=== PATIENT | female | born 1930 | race Caucasian/White ===

== ENCOUNTER 2017-06-27 16:30 | Emergency (ER) | payer OTHER ==
[2017-06-27 17:54] LABS: Urine Blood TRACE (NEG); Urine Glucose NEGATIVE (NEG); Urine Protein NEGATIVE (NEG); Urine Specific Gravity 1.015 (1.005-1.030); Urine pH 7.5 (5.0-7.0)
[2017-06-27 18:19] LABS: Protime INR 0.96
[2017-06-27 18:31] LABS: Absolute Lymphocytes (CBC) 1.8 K/uL (0.7-4.9); Absolute Monocytes 0.5 K/uL (0.1-1.3); Absolute Neutrophil 5.7 K/uL (1.8-8.0); Albumin 4.2 g/dL (3.2-5.5); Basophils % 0.9 % (0-1.3); Bilirubin Direct 0.1 mg/dL (0-0.2); Bilirubin Total 0.8 mg/dL (0.3-1.2); Hematocrit 52.2 % (36.0-45.0); Lymphocytes % 21.5 % (15.3-44.8); MCH 30.7 pg (27.0-35.0); MCV 93.6 fL (80-100); MPV 8.3 fL (7.6-11.3); Protein, Total 7.3 g/dL (6.0-8.3); RBC Red Blood Cell Count 5.58 M/uL (3.86-4.86)
--- NOTE | 2017-06-27 18:58 | EDPHYS ---
Physician Documentation [facility] Name: Shameka Serrano Age: 87 yrs Sex: Female : 1930 Arrival Date: 06/27/2017 Time: 16:31 Bed 7 Private MD: ED Physician Tolu Bedoya HPI: 06/27 18:54 This 87 yrs old Female presents to ER via Wheelchair with complaints of gs Weakness, Urinary Problem, Disoriented. 18:54 The patient presents to the emergency department with weakness of the entire body, gs generalized weakness. Onset: The symptoms/episode began/occurred 3 day(s) ago. Associated signs and symptoms: Pertinent positives: dysuria. Severity of symptoms: At their worst the symptoms were moderate in the emergency department the symptoms are unchanged. Current symptoms: Currently, the patient is not experiencing any symptoms. The patient has experienced similar episodes in the past, a few times. Historical: - Allergies: 16:44 No Known Allergies; sg - Home Meds: 16:49 levothyroxine 75 mcg tab 1 tab once daily [Active]; lisinopril 10 mg Oral tab 1 tab sg once daily [Active]; pravastatin 40 mg Oral tab 1 tab nightly [Active]; clonazepam 0.5 mg Oral tab 1 tab 3 times per day [Active]; aspirin 81 mg Oral chew 1 tab once daily [Active]; - PMHx: 16:44 Anxiety; COPD; Depression; Diverticulitis; sg - PSHx: 16:44 ; Tonsillectomy; Appendectomy; Thyroidectomy; Bowel resection; sg - Immunization history:: Adult Immunizations up to date. - Social history:: Smoking status: Patient/guardian denies using tobacco. ROS: 18:54 All other systems are negative. gs Exam: 18:54 Head/Face: Normocephalic, atraumatic. Eyes: Pupils equal round and reactive to light, gs extra-ocular motions intact. Lids and lashes normal. Conjunctiva and sclera are non-icteric and not injected. Cornea within normal limits. Periorbital areas with no swelling, redness, or edema. ENT: Nares patent. No nasal discharge, no septal abnormalities noted. Tympanic membranes are normal and external auditory canals are clear. Oropharynx with no redness, swelling, or masses, exudates, or evidence of obstruction, uvula midline. Mucous membranes moist. Neck: Trachea midline, no thyromegaly or masses palpated, and no cervical lymphadenopathy. Supple, full range of motion without nuchal rigidity, or vertebral point tenderness. No Meningismus. Chest/axilla: Normal chest wall appearance and motion. Nontender with no deformity. No lesions are appreciated. Cardiovascular: Regular rate and rhythm with a normal S1 and S2. No gallops, murmurs, or rubs. Normal PMI, no JVD. No pulse deficits. Respiratory: Lungs have equal breath sounds bilaterally, clear to auscultation and percussion. No rales, rhonchi or wheezes noted. No increased work of breathing, no retractions or nasal flaring. Abdomen/GI: Soft, non-tender, with normal bowel sounds. No distension or tympany. No guarding or rebound. No evidence of tenderness throughout. Back: No spinal tenderness. No costovertebral tenderness. Full range of motion. Skin: Warm, dry with normal turgor. Normal color with no rashes, no lesions, and no evidence of cellulitis. MS/ Extremity: Pulses equal, no cyanosis. Neurovascular intact. Full, normal range of motion. Neuro: Awake and alert, GCS 15, oriented to person, place, time, and situation. Cranial nerves II-XII grossly intact. Motor strength 5/5 in all extremities. Sensory grossly intact. Cerebellar exam normal. Normal gait. 18:54 Constitutional: The patient appears alert, awake. Vital Signs: 16:41 BP 171 / 80; Pulse 70; Resp 18; Pulse Ox 90% on R/A; Pain 0/10; sg 16:55 Temp 98.5; sg 19:00 BP 145 / 72; Pulse 70; Resp 18; Pulse Ox 90% on R/A; Pain 0/10; sg MDM: 17:28 Patient medically screened. gs 18:54 Data reviewed: vital signs, nurses notes. Data interpreted: monitor tech: Pulse gs oximetry:. Response to treatment: the patient's symptoms have markedly improved after treatment, and as a result, I will discharge patient. ED course: ddx uti, sepsis, copd exacerbation. 06/27 17:30 Order name: Basic Metabolic Panel; Complete Time: 18:36 06/27 17:30 Order name: Blood Culture Adult (2) 06/27 17:30 Order name: BNP; Complete Time: 18:36 06/27 17:30 Order name: CBC with Diff; Complete Time: 18:57 06/27 17:30 Order name: Lactate; Complete Time: 18:27 06/27 17:30 Order name: LFT's; Complete Time: 18:36 06/27 17:30 Order name: Lipase; Complete Time: 18:36 06/27 17:30 Order name: Procalcitonin; Complete Time: 18:57 06/27 17:30 Order name: Protime (+inr); Complete Time: 18:57 06/27 17:30 Order name: Troponin (emerg Dept Use Only); Complete Time: 18:36 06/27 17:30 Order name: Chest Single View XRAY; Complete Time: 19:06 06/27 17:39 Order name: Urine Dipstick--Ancillary (enter results); Complete Time: 18:09 06/27 18:52 Order name: Urine Microscopic Only 06/27 17:30 Order name: Accucheck; Complete Time: 17:34 06/27 17:30 Order name: Cardiac monitoring; Complete Time: 17:34 06/27 17:30 Order name: EKG - Nurse/Tech; Complete Time: 17:39 06/27 17:30 Order name: IV Saline Lock - Large Bore; Complete Time: 17:40 06/27 17:30 Order name: Labs collected and sent; Complete Time: 17:40 06/27 17:30 Order name: O2 Per Protocol; Complete Time: 17:33 06/27 17:30 Order name: O2 Sat Monitoring; Complete Time: 17:33 06/27 17:30 Order name: Urine Dipstick-Ancillary (obtain specimen); Complete Time: 17:39 06/27 17:30 Order name: Oxygen; Complete Time: 19:10 gs Administered Medications: No medications were administered Disposition: 06/27/17 18:57 Discharged to Home. Impression: Cystitis. - Condition is Stable. - Discharge Instructions: Urinary Tract Infection. - Prescriptions for Macrobid 100 mg Oral Capsule - take 1 capsule by ORAL route every 12 hours for 3 days; 6 capsule. - Medication Reconciliation Form, Thank You Letter, Antibiotic Education, Prescription Opioid Use form. - Follow up: Private Physician; When: 1 - 2 days; Reason: Re-evaluation by your physician. Signatures: Dispatcher [employer] Adalid Du RN Uma Murdock RN RN ak1 Tolu Bedoya MD MD gs
--- NOTE | 2017-06-27 18:58 | ER ---
Nurse's Notes [facility] Name: Shameka Serrano Age: 87 yrs Sex: Female : 1930 Arrival Date: 06/27/2017 Time: 16:31 Bed 7 Private MD: Diagnosis: Cystitis Presentation: 06/27 16:39 Presenting complaint: Patient states: I just feel very weak all over, its hard for me sg to walk, i get pretty tired, that's unusual for me. I dont really hurt or have any pain anywhere, I just dont feel good. pt family/friend reports episodes of confusion and abnormal behavior for her, she is normally ambulatory without assistance, we think she might have a UTI. Transition of care: patient was not received from another setting of care. No acute neurological deficit is noted. Onset of symptoms was June 27, 2017. Care prior to arrival: None. 16:39 Method Of Arrival: Wheelchair sg 16:39 Acuity: YUDITH 3 sg Triage Assessment: 16:40 General: Appears in no apparent distress. comfortable, well groomed, well developed, sg well nourished, Behavior is calm, cooperative, appropriate for age. Pain: Denies pain. Neuro: Level of Consciousness is awake, alert, obeys commands, Oriented to person, place, time, Billet Recorder are equal bilaterally Moves all extremities. Gait is unsteady, Speech is normal, Facial symmetry appears normal. Neuro: Reports weakness. Cardiovascular: Heart tones S1 S2 present Capillary refill is brisk in bilateral fingers Patient's skin is warm and dry. Chest pain is denied. Respiratory: Airway is patent Respiratory effort is even, unlabored, Respiratory pattern is regular, symmetrical, Breath sounds are clear. GI: Abdomen is round non-distended, Bowel sounds. : No signs and/or symptoms were reported regarding the genitourinary system. Parent/caregiver report the patient having urinary frequency. Derm: Skin is pink, warm \T\ dry. Musculoskeletal: Circulation, motion, and sensation intact. Range of motion: intact in all extremities, Swelling absent. Historical: - Allergies: 16:44 No Known Allergies; sg - Home Meds: 16:49 levothyroxine 75 mcg tab 1 tab once daily [Active]; lisinopril 10 mg Oral tab 1 tab sg once daily [Active]; pravastatin 40 mg Oral tab 1 tab nightly [Active]; clonazepam 0.5 mg Oral tab 1 tab 3 times per day [Active]; aspirin 81 mg Oral chew 1 tab once daily [Active]; - PMHx: 16:44 Anxiety; COPD; Depression; Diverticulitis; sg - PSHx: 16:44 ; Tonsillectomy; Appendectomy; Thyroidectomy; Bowel resection; sg - Immunization history:: Adult Immunizations up to date. - Social history:: Smoking status: Patient/guardian denies using tobacco. Screenin:50 Abuse screen: Denies threats or abuse. Denies injuries from another. Nutritional sg screening: No deficits noted. Tuberculosis screening: No symptoms or risk factors identified. Never had TB. Fall Risk No fall in past 12 months (0 pts). No secondary diagnosis (0 pts). No IV (0 pts). Ambulatory Aid- None/Bed Rest/Nurse Assist (0 pts). Gait- Weak (10 pts.). Total Aiken Fall Scale indicates Low Risk Score (25-44 pts). Fall prevention measures have been instituted. Side Rails Up X 2 Placed close to Nursing Station Frequent Obs/Assesments occuring Family Present and informed to notify staff if they need to leave bedside As available Patient and Family Educated on Fall Prevention Program and strategies. Assessment: 18:50 Reassessment: Patient appears in no apparent distress at this time. Patient and/or sg family updated on plan of care and expected duration. Pain level reassessed. Patient is alert, oriented x 3, equal unlabored respirations, skin warm/dry/pink. Patient states feeling better. Vital Signs: 16:41 BP 171 / 80; Pulse 70; Resp 18; Pulse Ox 90% on R/A; Pain 0/10; sg 16:55 Temp 98.5; sg 19:00 BP 145 / 72; Pulse 70; Resp 18; Pulse Ox 90% on R/A; Pain 0/10; sg ED Course: 16:31 Patient arrived in ED. as 16:41 Triage completed. sg 16:41 Arm band placed on. sg 16:46 Tolu Bedoya MD is Attending Physician. gs 16:50 Patient has correct armband on for positive identification. Bed in low position. Call sg light in reach. Side rails up X2. bus driver/monitor on. Pulse ox on. NIBP on. Warm blanket given. Head of bed elevated. 17:33 Adalid Felipe, RN is Primary Nurse. sg 17:47 Chest Single View XRAY In Process Unspecified. EDMS 18:00 Inserted saline lock: 22 gauge in right antecubital area, using aseptic technique. sg Blood collected. 19:05 No provider procedures requiring assistance completed. IV discontinued, intact, sg bleeding controlled, No redness/swelling at site. Pressure dressing applied. Administered Medications: No medications were administered Outcome: 18:57 Discharge ordered by . gs 19:05 Discharged to home via wheelchair, with family. sg 19:05 Condition: stable 19:05 Discharge instructions given to patient, family, hyperbaric nurse, Instructed on discharge instructions, follow up and referral plans. medication usage, safety practices, Demonstrated understanding of instructions, follow-up care, medications, Prescriptions given X 1. 19:11 Patient left the ED. ak1 Signatures: Dispatcher [employer] EDMS Adalid Felipe, RIA ROLLINS Shruthi Nicole Amber, RN RN ak1 Tolu Bedoya MD MD Corrections: (The following items were deleted from the chart) 18:09 16:40 : No signs and/or symptoms were reported regarding the genitourinary system. sg sg
--- NOTE | 2017-06-27 19:04 | RAD REPORT ---
EXAM DESCRIPTION: RAD - Chest Single View - 06/27/2017 5:46 pm CLINICAL HISTORY: Shortness of breath COMPARISON: May 21 TECHNIQUE: AP portable chest image was obtained 1741 hours . FINDINGS: No peripheral mass or consolidation. Lung markings are prominent but not substantially dif ferent. Pulmonary vasculature is not outside of normal range for portable imaging. Heart size is uppe r normal, similar to comparison. Trachea is midline. No measurable pleural effusion and no pneumothor ax. No gross bony abnormality seen. No acute aortic findings suspected. IMPRESSION: Interstitial markings are prominent but not clearly different from prior study. No focal mass or consolidations seen. Early interstitial edema or interstitial infiltrate can be mask ed by the baseline pattern.
[2017-06-27 19:15] VITALS: BP 171/80; O2SAT 90
[2017-06-27 19:16] VITALS: TEMP 98.5
== END 2017-06-27 19:11 | disposition home or self-care (01) ==
LOC: ER 16:30
DX: N30.90 Cystitis, unspecified without hematuria (principal); F41.9 Anxiety disorder, unspecified; F32.9 Major depressive disorder, single episode, unspecified; J44.9 Chronic obstructive pulmonary disease, unspecified
CPT/HCPCS: 36415; 71045; 80048; 80076; 81003; 83605; 83690; 83880; 84145; 84484; 85025; 85610; 87040; 99284

== ENCOUNTER 2017-07-02 21:32 | Observation (INO) | payer OTHER ==
[2017-07-02 22:14] LABS: Urine Blood NEGATIVE (NEG); Urine Glucose NEGATIVE (NEG); Urine Protein NEGATIVE (NEG); Urine Specific Gravity 1.015 (1.005-1.030); Urine pH 8.5 (5.0-7.0)
[2017-07-02 22:17] LABS: Absolute Lymphocytes (CBC) 1.8 K/uL (0.7-4.9); Absolute Monocytes 0.7 K/uL (0.1-1.3); Basophils % 1.2 % (0-1.3); Eosinophils % 3.6 % (0-4.4); Hematocrit 46.7 % (36.0-45.0); Lymphocytes % 18.4 % (15.3-44.8); MCV 91.2 fL (80-100); MPV 8.3 fL (7.6-11.3); Monocytes % 7.1 % (3.3-12.3); RBC Red Blood Cell Count 5.12 M/uL (3.86-4.86)
[2017-07-02 22:21] LABS: Protime INR 0.97
[2017-07-02 22:28] LABS: Urine Bacteria <20 /HPF (<20); Urine Culture Reflex Order NOT NEEDED; Urine Mucus NS /HPF (NONE SEEN); Urine RBC NONE SEEN /HPF (NONE SEEN)
[2017-07-02] MEDS ORDERED: NA CHLORIDE 0.9% 250 ML ONE (22:29)
[2017-07-02 22:32] LABS: Magnesium 2.2 mg/dL (1.8-2.5)
--- NOTE | 2017-07-02 23:27 | RAD REPORT ---
EXAM DESCRIPTION: RAD - Chest Single View - 07/02/2017 10:12 pm CLINICAL HISTORY: Fall, trauma, chest pain. COMPARISON: 06/27/2017, 05/21/2017 FINDINGS: Portable technique limits examination quality. Interstitial lung markings are mildly prominent. The heart is moderately enlarged. Aortic atheroscler osis. No displaced fractures.Surgical clips seen in the neck. IMPRESSION: Mild CHF/ volume overload pattern.
--- NOTE | 2017-07-03 00:26 | EDPHYS ---
Physician Documentation [facility] Name: Shameka Serrano Age: 87 yrs Sex: Female : 1930 Arrival Date: 07/02/2017 Time: 21:35 Bed 13 Private MD: ED Physician Lupillo Banda HPI: 07/03 00:16 This 87 yrs old Female presents to ER via EMS with complaints of weakness, rn fall, head trauma. 00:16 Daughter reports doing well recently, taking abx for UTI, today sat on floor around 5PM rn to get something from cabinet/shelf, unable to get up, + baseline LLE weakness from assumed previous stroke, but today weaker than normal, also when finally got up, fell backward and hit head, no LOC, no vomiting. . Onset: The symptoms/episode began/occurred today, at 17:00. Severity of symptoms: At their worst the symptoms were moderate in the emergency department the symptoms have improved. It is unknown whether or not the patient has had similar symptoms in the past. The patient has not recently seen a physician. Historical: - Allergies: 07/02 22:14 No Known Allergies; bs1 - Home Meds: 22:14 paroxetine HCl 20 mg oral tab [Active]; levothyroxine 75 mcg tab 1 tab once daily bs1 [Active]; lisinopril 10 mg Oral tab 1 tab once daily [Active]; pravastatin 40 mg Oral tab 1 tab nightly [Active]; clonazepam 0.5 mg Oral tab 1 tab 3 times per day [Active]; docusate sodium 100 mg Oral cap 1 cap once daily [Active]; albuterol sulfate 90 mcg/actuation Inhl HFAA as needed for Chronic Obstructive Pulmonary Disease [Active]; Symbicort 160-4.5 mcg/actuation inhalation HFAA as needed [Active]; Anoro Ellipta 62.5-25 mcg/actuation inhalation dsdv [Active]; - PMHx: 22:14 Anxiety; COPD; Depression; Diverticulitis; bs1 - Immunization history:: Adult Immunizations up to date. - Social history:: Smoking status: Patient uses tobacco products, smokes one-half pack cigarettes per day. - Family history:: not pertinent. - Hospitalizations: : No recent hospitalization is reported. ROS: 07/03 00:16 Constitutional: Negative for fever, chills, and weight loss, Eyes: Negative for injury, rn pain, redness, and discharge, Neck: Negative for injury, pain, and swelling, Cardiovascular: Negative for chest pain, palpitations, and edema, Respiratory: Negative for pleuritic chest pain, Abdomen/GI: Negative for abdominal pain, nausea, vomiting, diarrhea, and constipation, Back: Negative for injury and pain, MS/Extremity: Negative for injury and deformity, Skin: Negative for injury, rash, and discoloration, Neuro: Negative for numbness, tingling, and seizure. Exam: 00:16 Constitutional: This is a well developed, well nourished patient who is awake, alert, rn and in no acute distress. Head/Face: Normocephalic, atraumatic. Eyes: Pupils equal round and reactive to light, extra-ocular motions intact. Lids and lashes normal. Conjunctiva and sclera are non-icteric and not injected. Cornea within normal limits. Periorbital areas with no swelling, redness, or edema. Neck: Trachea midline, no thyromegaly or masses palpated, and no cervical lymphadenopathy. Supple, full range of motion without nuchal rigidity, or vertebral point tenderness. No Meningismus. Cardiovascular: Regular rate and rhythm with a normal S1 and S2. No gallops, murmurs, or rubs. Normal PMI, no JVD. No pulse deficits. Respiratory: + mild tachypnea, no wheezing, no retractions Abdomen/GI: Soft, non-tender, with normal bowel sounds. No distension or tympany. No guarding or rebound. No evidence of tenderness throughout. MS/ Extremity: Pulses equal, no cyanosis. Neuro: Awake and alert, GCS 15, oriented to person, place, and situation. Cranial nerves II-XII grossly intact. Motor strength 4/5 in all 4 extremities, slightly worse in LLE. Sensory grossly intact. Vital Signs: 07/02 22:10 BP 144 / 72 LA Supine (auto/reg); Pulse 78; Resp 22 S; Temp 98.3; Pulse Ox 95% on 3 lpm cc NC; Weight 61.23 kg (R); Height 5 ft. 1 in. (154.94 cm) (R); Pain 0/10; 23:10 BP 139 / 56; Pulse 76; Resp 16; Pulse Ox 96% on 3 lpm NC; Pain 0/10; bs1 07/03 00:20 BP 127 / 85; Pulse 71; Resp 17; Pulse Ox 97% 3 lpm ; Pain 0/10; bs1 02:00 BP 141 / 57; Pulse 64; Resp 21; Pulse Ox 99% ; bp 02:40 BP 134 / 57; Pulse 65; Resp 21; Pulse Ox 98% on 3 lpm NC; Pain 0/10; bs1 07/02 22:10 Body Mass Index 25.51 (61.23 kg, 154.94 cm) cc MDM: 07/02 21:36 Patient medically screened. rn 07/03 00:16 Differential Diagnosis altered mental status, sepsis, UTI, dehydration, pneumonia, rn COPD, head trauma, CVA. Data reviewed: vital signs, nurses notes, lab test result(s), EKG, radiologic studies, CT scan, plain films, and as a result, I will admit patient. Counseling: I had a detailed discussion with the patient and/or guardian regarding: the historical points, exam findings, and any diagnostic results supporting the discharge/admit diagnosis, lab results, radiology results, the need for further work-up and treatment in the hospital. Admission orders: after a detailed discussion of the patient's condition and case, the admit orders are written by me. 07/02 21:47 Order name: Urine Microscopic Only; Complete Time: 23:17 rn 07/02 21:47 Order name: Basic Metabolic Panel; Complete Time: 23:17 rn 07/02 21:47 Order name: BNP; Complete Time: 23:17 rn 07/02 21:47 Order name: CBC with Diff; Complete Time: 23:17 rn 07/02 21:47 Order name: Magnesium; Complete Time: 23:17 rn 07/02 21:47 Order name: Protime (+inr); Complete Time: 23:17 rn 07/02 21:47 Order name: CT Head C Spine rn 07/02 21:47 Order name: Ptt, Activated; Complete Time: 23:17 rn 07/02 21:47 Order name: Troponin (emerg Dept Use Only); Complete Time: 23:17 rn 07/02 21:47 Order name: XRAY Chest (1 view); Complete Time: 23:50 rn 07/02 21:47 Order name: Urine Culture rn 07/02 21:49 Order name: Urine Culture EDMS 07/02 22:09 Order name: Urine Dipstick--Ancillary (enter results); Complete Time: 23:17 em1 07/02 21:47 Order name: EKG; Complete Time: 21:48 rn 07/02 21:47 Order name: Cardiac monitoring; Complete Time: 22:08 rn 07/02 21:47 Order name: EKG - Nurse/Tech; Complete Time: 22:08 rn 07/02 21:47 Order name: IV Saline Lock; Complete Time: 22:08 rn 07/02 21:47 Order name: Labs collected and sent; Complete Time: 22:08 rn 07/02 21:47 Order name: NPO; Complete Time: 22:11 rn 07/02 21:47 Order name: O2 Per Protocol; Complete Time: 22:08 rn 07/02 21:47 Order name: O2 Sat Monitoring; Complete Time: 22:08 rn 07/02 21:47 Order name: Urine Dipstick-Ancillary (obtain specimen); Complete Time: 22:08 rn Administered Medications: 07/02 22:11 Drug: NS 0.9% 250 ml Route: IV; Rate: 1 bolus; Site: right antecubital; bs1 07/03 00:44 Follow up: IV Status: Completed infusion bp Disposition: 07/03/17 00:25 Hospitalization ordered by Giorgio Cloud for Observation. Preliminary diagnosis are Weakness, Dehydration, Dyspnea, unspecified. - Bed requested for Telemetry/MedSurg (observation). - Status is Observation. bs1 - Condition is Stable. - Problem is new. - Symptoms have improved. UTI on Admission? No Signatures: Dispatcher [employer] La Nena Young, RN Lupillo Mcleod MD MD rn Salazar, Brittany, RN RN bs1 Tim Estevez RN bp
--- NOTE | 2017-07-03 00:26 | ER ---
Nurse's Notes [facility] Name: Shameka Serrano Age: 87 yrs Sex: Female : 1930 Arrival Date: 07/02/2017 Time: 21:35 Bed 13 Private MD: Diagnosis: Weakness;Dehydration;Dyspnea, unspecified Presentation: 07/02 21:52 Presenting complaint: EMS states: 'Patient was found on the floor, no LOC, patient sat bs1 down to find something in her cabinet and she fell backwards and hit the back of her head, patient has been feeling weak in the legs for the past couple of days.". Transition of care: patient was not received from another setting of care. Onset of symptoms was July 02, 2017. Care prior to arrival: None. 21:52 Method Of Arrival: EMS: [facility] bs1 21:52 Acuity: YUDITH 2 bs1 21:52 Care prior to arrival: Oxygen administered. via nasal cannula, 2 L, patient uses home bs1 oxygen PRN/bedtime. Historical: - Allergies: 22:14 No Known Allergies; bs1 - Home Meds: 22:14 paroxetine HCl 20 mg oral tab [Active]; levothyroxine 75 mcg tab 1 tab once daily bs1 [Active]; lisinopril 10 mg Oral tab 1 tab once daily [Active]; pravastatin 40 mg Oral tab 1 tab nightly [Active]; clonazepam 0.5 mg Oral tab 1 tab 3 times per day [Active]; docusate sodium 100 mg Oral cap 1 cap once daily [Active]; albuterol sulfate 90 mcg/actuation Inhl HFAA as needed for Chronic Obstructive Pulmonary Disease [Active]; Symbicort 160-4.5 mcg/actuation inhalation HFAA as needed [Active]; Anoro Ellipta 62.5-25 mcg/actuation inhalation dsdv [Active]; - PMHx: 22:14 Anxiety; COPD; Depression; Diverticulitis; bs1 - Immunization history:: Adult Immunizations up to date. - Social history:: Smoking status: Patient uses tobacco products, smokes one-half pack cigarettes per day. - Family history:: not pertinent. - Hospitalizations: : No recent hospitalization is reported. Screenin:15 Abuse screen: Denies threats or abuse. Denies injuries from another. Nutritional bs1 screening: No deficits noted. Tuberculosis screening: No symptoms or risk factors identified. Fall Risk Fall in past 12 months (25 points). No secondary diagnosis (0 pts). IV access (20 points). Ambulatory Aid- Crutches/Cane/Walker (15 pts). Gait- Weak (10 pts.). Mental Status- Oriented to own ability (0 pts). Total Aiken Fall Scale indicates High Risk Score (45 or more points). Fall prevention measures have been instituted. Side Rails Up X 2 Placed Close to Nursing Station As available patient and family educated on Fall Prevention Program and Strategies. Assessment: 22:16 General: Appears in no apparent distress. uncomfortable, Behavior is calm, cooperative. bs1 Pain: Denies pain. Neuro: Level of Consciousness is awake, alert, obeys commands, Oriented to person, place, time, situation, Appropriate for age Remittance Clerk are equal bilaterally Weakness in left leg(s) Gait is unsteady, Speech is normal, Facial symmetry appears normal, Pupils are PERRLA, Intact Denies blurred vision dizziness, difficulty swallowing, numbness headache photophobia. Cardiovascular: Denies chest pain, lightheadedness, palpitations, shortness of breath, syncope, vomiting, Heart tones S1 S2 present Capillary refill < 3 seconds Patient's skin is warm and dry. Respiratory: Airway is patent Trachea midline Respiratory effort is even, unlabored, Respiratory pattern is regular, symmetrical, Breath sounds are diminished bilaterally. Denies shortness of breath at rest, on exertion. GI: Abdomen is round Bowel sounds present X 4 quads. Abd is soft and non tender. GI: Abd is soft and non tender X 4 quads. : Reports incontinence. EENT: No deficits noted. No signs and/or symptoms were reported regarding the EENT system. Derm: Skin redness noted to bilateral knees. Musculoskeletal: Circulation, motion, and sensation intact. Capillary refill < 3 seconds, Range of motion: limited in left leg Daughter states that patient has been having weakness for the past couple years but increased more today around 1700 in left leg. 22:17 Reassessment: Increased oxygen 1L, wa son 2L, now on 3L NC. Oxygen saturation 88%, bs1 increased to 94%. 23:09 Reassessment: Patient appears in no apparent distress at this time. No changes from bs1 previously documented assessment. Patient and/or family updated on plan of care and expected duration. Pain level reassessed. Patient is alert, oriented x 3, equal unlabored respirations, skin warm/dry/pink. 07/03 00:20 Reassessment: Patient appears in no apparent distress at this time. No changes from bs1 previously documented assessment. Patient and/or family updated on plan of care and expected duration. Pain level reassessed. Patient is alert, oriented x 3, equal unlabored respirations, skin warm/dry/pink. 00:43 Reassessment: ADMIT IN PROCESS, ADMIT MD NOLAND PENDING. bp Vital Signs: 07/02 22:10 BP 144 / 72 LA Supine (auto/reg); Pulse 78; Resp 22 S; Temp 98.3; Pulse Ox 95% on 3 lpm cc NC; Weight 61.23 kg (R); Height 5 ft. 1 in. (154.94 cm) (R); Pain 0/10; 23:10 BP 139 / 56; Pulse 76; Resp 16; Pulse Ox 96% on 3 lpm NC; Pain 0/10; bs1 07/03 00:20 BP 127 / 85; Pulse 71; Resp 17; Pulse Ox 97% 3 lpm ; Pain 0/10; bs1 02:00 BP 141 / 57; Pulse 64; Resp 21; Pulse Ox 99% ; bp 02:40 BP 134 / 57; Pulse 65; Resp 21; Pulse Ox 98% on 3 lpm NC; Pain 0/10; bs1 07/02 22:10 Body Mass Index 25.51 (61.23 kg, 154.94 cm) cc ED Course: 07/02 21:32 Notified ED physician of other physician at bedside. bs1 21:35 Patient arrived in ED. em1 21:36 Lupillo Banda MD is Attending Physician. rn 21:50 Inserted saline lock: 20 gauge in right antecubital area, using aseptic technique. cc Blood collected. 21:50 Initial lab(s) drawn, by me, sent to lab. cc 21:51 Belkis Lopez, RN is Primary Nurse. bs1 21:55 Triage completed. bs1 22:08 Urine Microscopic Only Sent. cc 22:08 Basic Metabolic Panel Sent. cc 22:08 BNP Sent. cc 22:08 CBC with Diff Sent. cc 22:08 Magnesium Sent. cc 22:08 Protime (+inr) Sent. cc 22:09 Ptt, Activated Sent. cc 22:09 Troponin (emerg Dept Use Only) Sent. cc 22:10 X-ray completed. Portable x-ray completed in exam room. Patient tolerated procedure kc2 well. 22:11 XRAY Chest (1 view) In Process Unspecified. EDMS 22:16 Patient has correct armband on for positive identification. Placed in gown. Cardiac bs1 monitor on. Pulse ox on. NIBP on. 22:16 Arm band placed on left wrist. bs1 22:[address] via stretcher. vm2 22:36 CT completed. Patient moved back from CT. vm2 22:38 CT Head C Spine In Process Unspecified. EDMS 07/03 00:21 Giorgio Cloud MD is Hospitalizing Provider. rn 00:21 No provider procedures requiring assistance completed. bs1 02:14 Patient admitted, IV remains in place. bp Administered Medications: 07/02 22:11 Drug: NS 0.9% 250 ml Route: IV; Rate: 1 bolus; Site: right antecubital; bs1 07/03 00:44 Follow up: IV Status: Completed infusion bp Outcome: 00:25 Decision to Hospitalize by Provider. rn 02:35 Admitted to Tele accompanied by tech, via stretcher, room 402, with oxygen, with chart, bs1 Report called to RIA Campa 02:35 Condition: stable 02:50 Patient left the ED. bs1 Signatures: Dispatcher [employer] EDUT Lupillo Banda MD MD rn Martinez, Eric 1 Liz Landrum cc Briseyda Harper 2 Sveta Haque 2 Tim Estevez RN RN bp Salazar, Brittany, RN RN bs1
--- NOTE | 2017-07-03 02:05 | P.HP ---
Certification for Inpatient Patient admitted to: Observation With expected LOS: <2 Midnights Practitioner: I am a practitioner with admitting privileges, knowledge of patient current condition, hospital course, and medical plan of care. Services: Services provided to patient in accordance with Admission requirements found in Title 42 Section 412.3 of the Code of Federal Regulations Patient History Date of Service: 07/03/17 Reason for admission: Left lower extremity weakness History of Present Illness: Ms Serrano is an 87 years old woman with history of hypothyroidism, COPD, depression, HTN, parotid gland cancer, who was at home today when suddenly she fell. She states that was not able to stand up from the floor. She managing to call a friend by phone to come and help her. Once her friend arrived home, she crowled to the door to open, and she fell again. Her daughter who is at the bedside, states she has chronic weakness on her left leg, but today is worse. No history of fever or chills. She has been treatede over the weekend with antibiotics due to UTI. Her PCP started about 2 weeks ago on Paxil, and decreased the dose of clonazepam. At arrival Lab work was remarkable for hypokalemia. Trop I was 0.05, no chest pain. Allergies No Known Allergies Allergy (Verified 06/03/14 11:46) Home Medications: Aspirin [Aspirin EC 81 MG] 81 mg PO DAILY 05/22/17 Budesonide/Formoterol Fumarate [Symbicort 160-4.5 Mcg Inhaler] 1 puff IH PRN PRN 05/22/17 Docusate Sodium 100 mg PO BEDTIME 05/22/17 Levothyroxine [Synthroid*] 75 mcg PO DAILY 05/22/17 Lisinopril [Prinivil*] 10 mg PO DAILY 05/22/17 Paroxetine HCl [Paxil] 40 mg PO DAILY 05/22/17 Pravastatin Sodium [Pravachol] 40 mg PO BEDTIME 05/22/17 Cefuroxime Axetil [Cefuroxime] 500 mg PO BID #8 tab 05/23/17 Clonazepam [Klonopin*] 0.5 mg PO DAILY #1 tab 05/23/17 - Past Medical/Surgical History Diabetic: No -: COPD -: ANXIETY -: HYPERLIPIDEMIA -: HYPOTHYROID -: OSTEOPOROSIS -: DIVERTICULITIS -: TOBACCO ABUSE -: CSECTION -: TONSILLECTOMY -: THYROIDECTOMY -: BOWEL RESECTION -: APPENDECTOMY - Family History Family History: Reviewed- Non-Contributory - Social History Alcohol use: Yes CD- Drugs: No Caffeine use: Yes Place of Residence: Home Review of Systems 10-point ROS is otherwise unremarkable Physical Examination - Physical Exam General: Alert, In no apparent distress HEENT: Atraumatic, PERRLA, Mucous membr. moist/pink, EOMI, Sclerae nonicteric Neck: Supple, 2+ carotid pulse no bruit, No LAD, Without JVD or thyroid abnormality Respiratory: Normal air movement, Diminished Cardiovascular: Regular rate/rhythm, Normal S1 S2 Gastrointestinal: Normal bowel sounds, No tenderness Musculoskeletal: No tenderness Integumentary: No rashes Neurological: Normal tone, Normal affect, Abnormal speech (slurred), Abnormal strength (left lower extremity 3/5, rest of the limbs 5/5) Lymphatics: No axilla or inguinal lymphadenopathy - Studies Laboratory Data (last 24 hrs) 07/02/17 21:50: PT 11.5, INR 0.97, APTT 28.6 07/02/17 21:50: WBC 10.0 D, Hgb 15.9 H, Hct 46.7 H, Plt Count 292 07/02/17 21:50: B-Natriuretic Peptide 123 H 07/02/17 21:50: Sodium 146 H, Potassium 3.0 L, BUN 12, Creatinine 0.86, Glucose 106, Magnesium 2.2 Assessment and Plan - Problems (Diagnosis) (1) COPD (chronic obstructive pulmonary disease) Onset Date: 05/22/17 Current Visit: No Status: Acute Qualifiers: COPD type: unspecified COPD Qualified Code(s): J44.9 - Chronic obstructive pulmonary disease, unspecified (2) Generalized weakness Current Visit: No Status: Acute (3) Hypothyroidism Current Visit: No Status: Acute Qualifiers: Hypothyroidism type: unspecified Qualified Code(s): E03.9 - Hypothyroidism , unspecified - Plan The patient will be admitted to the hospital due to weakness. CT head/cervical spine reports no acute abnormalities. She has hypokalemia 3.0. Will replace electrolyte as needed by protocol, order PT evaluation, MRI brain to R/O acute CVA. Will check serial troponin I since initial one is mildly elevated. Will resume her home medication once verified. - Advance Directives Does patient have a Living Will: Yes Does patient have a Durable POA for Healthcare: Yes
[2017-07-03] MEDS ORDERED: ACETAMINOPHEN 500 MG TAB PO PRN (02:25)
[2017-07-03] MEDS ORDERED: ONDANSETRON 4 MG/2 ML VIAL IV PRN (02:25)
[2017-07-03] MEDS ORDERED: NA CHLORIDE 0.9% 250 ML ONE (03:02)
[2017-07-03] MEDS: KCL 20 MEQ/100 mL IVPB 20 MEQ/100 ML BAG IV SCH ×2 (03:27→06:21)
[2017-07-03 05:28] VITALS: BMI 27.6
--- NOTE | 2017-07-03 07:35 | EKG ---
Test Date: 2017-07-02 Test Time: 22:00:[address] Installer: BOB MEASUREMENT RESULTS: Intervals: Rate: 76 ND: 178 QRSD: 92 QT: 428 QTc: 481 [place]: P: -1 ND: 178 QRS: -43 T: 55 INTERPRETIVE STATEMENTS: Sinus rhythm with occasional premature ventricular complexes Left axis deviation Inferior infarct, age undetermined Abnormal ECG Compared to ECG 05/21/2017 21:59:13 Myocardial infarct finding now present Electronically Signed On 07-03-17 07:34:48 CDT by Jun Bob
--- NOTE | 2017-07-03 08:19 | RAD REPORT ---
EXAM DESCRIPTION: CT - CTHCSPWOC - 07/03/2017 3:46 am CLINICAL HISTORY: Trauma, head and neck injury. COMPARISON: 09/28/2014 TECHNIQUE: Axial 5 mm thick images of the head were obtained. Axial 2 mm thick images of the cervical spine were obtained with sagittal and coronal reconstruction images generated and reviewed. All CT scans are performed using dose optimization technique as appropriate and may include automated exposure control or mA/KV adjustment according to patient size. FINDINGS: CT HEAD WITHOUT CONTRAST: No acute hemorrhage, hydrocephalus or extra-axial collection is identified.Mild generalized brain atr ophy is present with mild periventricular and deep white matter chronic microvascular ischemic change s.No areas of brain edema or midline shift. The paranasal sinuses and mastoids are clear.The calvarium is intact. Posterior scalp hematoma noted. CT CERVICAL SPINE WITHOUT CONTRAST: No fracture or subluxation.Mild lower cervical spondylosis.No prevertebral soft tissues swelling is i dentified. IMPRESSION: No acute intracranial or cervical spine findings.
[2017-07-03] MEDS ORDERED: ENOXAPARIN 40 MG/0.4 ML SQ SCH (09:00)
[2017-07-03] MEDS ORDERED: clonazePAM 0.5 MG TAB PO PRN (09:27)
[2017-07-03 10:31] VITALS: O2SAT 94
[2017-07-03 12:15] VITALS: BP 141/83; TEMP 98.1
--- NOTE | 2017-07-03 13:59 | RAD REPORT ---
EXAM DESCRIPTION: MRI - Brain W/Wo Cont - 07/03/2017 1:37 pm CLINICAL HISTORY: Headaches/CVA COMPARISON: July 02, [address] TECHNIQUE: Axial, sagittal, and coronal magnetic images of the brain were obtained. Twenty cc Magnev ist administered intravenously. FINDINGS: Moderate signal within periventricular, deep and subcortical white matter is present. Diffusion-weighted/ADC mapping does not reveal evidence of acute infarction. The ventricles are normal caliber. No abnormal enhancement within the brain is seen. An extra-axial fluid collection is not seen The sinuses and mastoids are clear. IMPRESSION: Moderate signal within periventricular, deep and subcortical white matter probably secon na to small vessel disease. No acute abnormality is displayed
[2017-07-03] MEDS ORDERED: ATORVASTATIN 10 MG TAB PO SCH (21:00)
--- NOTE | 2017-07-04 00:56 | DS ---
Date of Discharge: 07/03/2017 Discharge Diagnoses: 1.Acute chronic obstructive pulmonary disease. 2.Generalized weakness. 3.Hypothyroidism. 4.Generalized anxiety disorder. 5.Hyperlipidemia. 6.Osteoporosis. Hospital Course: The patient is an 87-year-old female, who had a fall. The patient was unable to ge t up however and able to call her friend by phone to come help her. The patient had been feeling wea k and therefore was admitted to the hospital. The patient recently had been treated with antibiotics for her UTI. Upon arrival to the ER, she was found to have some hypokalemia. Troponin was mildly e levated with no chest pain. The patient potassium was replaced. The patient was doing well. She am bulated the hallway twice with minimal assistance. She had no further falls. Imaging including head CT and cervical spine did not show any acute abnormalities. No fractures. MRI of the brain was als o ordered. The patient was then cleared for discharge to go home in a stable condition. Activity: Fall precautions. Diet: Heart healthy. Followup: 1.Follow up with primary care physician in 1 week. 2.Follow up with consultants as recommended. Return to ER for worsening condition. Medications: As per medication reconciliation list. Total time spent discharging the patient was 32 minutes. Physical Examination: General: Awake, alert, oriented, no acute distress. CV: S1, S2. No murmurs. Respiratory: Moving air well bilaterally. No wheezing. Abdomen: Soft, nontender, nondistended. Positive bowel sounds. Extremities: No clubbing, cyanosis, or edema. Neuro: Nonfocal. SA/MODL Voice ID: [id number] Report ID: [id number]
[2017-07-04] MEDS ORDERED: LEVOTHYROXINE SOD 0.075 MG TAB PO SCH (06:30)
[2017-07-04] MEDS ORDERED: PARoxetine HCl 10 MG TAB PO SCH (09:00)
[2017-07-04] MEDS ORDERED: LISINOPRIL 10 MG TAB PO SCH (09:00)
[2017-07-04] MEDS ORDERED: DOCUSATE NA 100 MG CAP PO SCH (09:00)
== END 2017-07-03 14:39 | disposition home or self-care (01) ==
LOC: ER 21:32 → INTOOBSV 07-03 00:54 → OBSVTOIN 07-03 00:54 → ERHOLD 07-03 00:54 → 4TH 07-03 02:23 → OBSVTOIN 07-03 08:16 → INTOOBSV 07-03 08:16
PROVIDERS: ADMIT Internal Medicine; ATTEND Internal Medicine
DX: F41.9 Anxiety disorder, unspecified; Z85.89 Personal history of malignant neoplasm of other organs and systems; F32.9 Major depressive disorder, single episode, unspecified; E87.6 Hypokalemia; J44.9 Chronic obstructive pulmonary disease, unspecified; Z79.82 Long term (current) use of aspirin; R53.1 Weakness; I10 Essential (primary) hypertension; E03.9 Hypothyroidism, unspecified; M81.0 Age-related osteoporosis without current pathological fracture
CPT/HCPCS: 36415; 70450; 70553; 71045; 72125; 80048; 80061; 83735; 83880; 84132; 84443; 84484 ×2; 85025; 85610; 85730; 87086; 87088; 93005; 94760 ×2; 96360; 96361; 97163; 99285; A9579; G0378 ×4; J1650; J2405; 81003; 81015; 96365; 96366

== ENCOUNTER 2017-08-11 05:52 | Emergency (ER) | payer OTHER ==
[2017-08-11 06:27] LABS: Urine Blood NEGATIVE (NEG); Urine Glucose NEGATIVE (NEG); Urine Protein NEGATIVE (NEG); Urine Specific Gravity 1.015 (1.005-1.030); Urine pH 8.5 (5.0-7.0)
[2017-08-11 06:39] LABS: Urine Bacteria <20 /HPF (<20); Urine Culture Reflex Order NOT NEEDED; Urine RBC NONE SEEN /HPF (NONE SEEN)
[2017-08-11 06:42] LABS: Absolute Lymphocytes (CBC) 1.8 K/uL (0.7-4.9); Absolute Monocytes 0.7 K/uL (0.1-1.3); Basophils % 0.7 % (0-1.3); Eosinophils % 1.9 % (0-4.4); Hematocrit 47.1 % (36.0-45.0); Lymphocytes % 18.2 % (15.3-44.8); MCH 31.3 pg (27.0-35.0); MCV 91.7 fL (80-100); MPV 8.1 fL (7.6-11.3); RBC Red Blood Cell Count 5.14 M/uL (3.86-4.86)
[2017-08-11 06:47] LABS: Protime INR 0.94
[2017-08-11 06:56] LABS: Potassium 2.9 mEq/L (3.6-5.0)
[2017-08-11] MEDS ORDERED: NS KCL 20MEQ 1,000 ML IV ONE (07:08)
[2017-08-11] MEDS ORDERED: POTASSIUM 25 MEQ EFFERV TAB ONE (07:08)
[2017-08-11] MEDS ORDERED: ONDANSETRON 4 MG/2 ML VIAL ONE (08:04)
--- NOTE | 2017-08-11 08:34 | ER ---
Nurse's Notes [facility] Name: Shameka Serrano Age: 87 yrs Sex: Female : 1930 Arrival Date: 08/11/2017 Time: 05:54 Bed 6 Private MD: Diagnosis: Hypokalemia;Weakness Presentation: 08/11 06:10 Presenting complaint: Child states: "I think she has a UTI. She has the urinary ao frequency and all those symptoms" Patient also reports weakness and confusion. Daughter report problem started about two days ago. Transition of care: patient was not received from another setting of care. No acute neurological deficit is noted. Pre-hospital glucose is not applicable to this patient. Onset of symptoms is unknown. Initial Sepsis Screen: Does the patient meet any 2 criteria? No. Patient's initial sepsis screen is negative. Does the patient have a suspected source of infection? No. Patient's initial sepsis screen is negative. Care prior to arrival: None. 06:10 Method Of Arrival: Ambulatory ao 06:10 Acuity: YUDITH 3 ao Stroke Activation: Physician: Stroke Attending; Name: ; Notified At: ; Arrived At: Physician: Chief Stroke Resident; Name: ; Notified At: ; Arrived At: Physician: Stroke Resident; Name: ; Notified At: ; Arrived At: Physician: ED Attending; Name: ; Notified At: ; Arrived At: Physician: ED Resident; Name: ; Notified At: ; Arrived At: 06:10 No stroke alert called ao Historical: - Allergies: 06:19 No Known Allergies; ao - Home Meds: 06:19 levothyroxine 75 mcg tab 1 tab once daily [Active]; lisinopril 10 mg Oral tab 1 tab ao once daily [Active]; pravastatin 40 mg Oral tab 1 tab nightly [Active]; clonazepam 0.5 mg Oral tab 1 tab 3 times per day [Active]; docusate sodium 100 mg Oral cap 1 cap once daily [Active]; paroxetine HCl 20 mg Oral tab [Active]; - PMHx: 06:19 Anxiety; COPD; Depression; Diverticulitis; ao - PSHx: 06:19 None; ao - Immunization history:: Adult Immunizations up to date. - Social history:: Smoking status: Patient uses tobacco products, smokes one-half pack cigarettes per day, Patient/guardian denies using alcohol, street drugs. Screenin:23 Abuse screen: Denies threats or abuse. Denies injuries from another. Nutritional ao screening: No deficits noted. Tuberculosis screening: No symptoms or risk factors identified. Fall Risk Fall in past 12 months (25 points). Assessment: 06:21 General: Appears in no apparent distress. comfortable, Behavior is calm, cooperative. ao Pain: Denies pain. Neuro: Level of Consciousness is awake, confused, Oriented to person, Moves all extremities. Speech is normal, Facial symmetry appears normal, Pupils are PERRLA. Cardiovascular: Capillary refill < 3 seconds Patient's skin is warm and dry. Respiratory: Airway is patent Respiratory effort is even, unlabored, Respiratory pattern is regular, symmetrical. GI: Abdomen is non-distended. : No signs and/or symptoms were reported regarding the genitourinary system. EENT: No signs and/or symptoms were reported regarding the EENT system. Derm: Skin is pink, warm \\T\\ dry. Skin temperature is warm. Musculoskeletal: Circulation, motion, and sensation intact. Range of motion: limited in all extremities. 07:19 Reassessment: Patient appears in no apparent distress at this time. Patient and/or sg family updated on plan of care and expected duration. Pain level reassessed. pt daughter at bedside at this time, awaiting IV NS with Potassium to infuse as ordered, pt tolerating PO potassium supplement, no new orders received at this time, will continue to monitor. 07:50 Reassessment: Patient appears in no apparent distress at this time. Patient and/or sg family updated on plan of care and expected duration. Pain level reassessed. Ifeanyi PREDICTIVE MAINTENANCE TECHNICIAN at bedside updating pt and pt daughter on POC, pt and pt daughter stated understanding. Vital Signs: 06:15 BP 191 / 71; Pulse 73; Resp 14; Temp 97.9; Pulse Ox 91% on R/A; Weight 63.5 kg (R); ao Height 5 ft. 0 in. (152.40 cm) (R); Pain 0/10; 07:20 BP 192 / 70; Pulse 67 MON; Resp 16 S; Pulse Ox 98% on 2 lpm NC; sg 07:53 BP 159 / 79; Pulse 65; Resp 17; Pulse Ox 96% on R/A; sg 06:15 Body Mass Index 27.34 (63.50 kg, 152.40 cm) ao 07:53 pt daughter reports that the pt had taken her home medications for BP sg ED Course: 05:54 Patient arrived in ED. ds1 05:59 [facility] kb 05:59 Kari Novak MD is Attending Physician. kb 06:10 Jaime Conley, RN is Primary Nurse. ao 06:14 Triage completed. ao 06:15 Arm band placed on right wrist. Patient placed in an exam room, on a stretcher, on ao oxygen, on pulse oximetry. 06:23 Patient has correct armband on for positive identification. Pulse ox on. NIBP on. ao 06:30 Inserted saline lock: 20 gauge in left antecubital area, using aseptic technique. Blood eb collected. 06:53 CT Head Brain wo Cont In Process Unspecified. EDMS 07:00 Report given to RIA Cordoba. ao 07:06 Primary Nurse role handed off by Jaime Conley, RN sg 07:06 Adalid Felipe, RN is Primary Nurse. sg 07:41 Assisted to bathroom. with assistance from cath laboratory technician Hakeem. sg 07:44 back to bed, no problems encountered. sg 07:52 Awaiting: IV fluids to infuse prior to dc to home. sg 08:22 Assisted with bedpan. sv 08:44 No provider procedures requiring assistance completed. IV discontinued, intact, sg bleeding controlled, No redness/swelling at site. Pressure dressing applied. Administered Medications: 07:18 Drug: Potassium Effervescent Tablet 50 mEq Route: PO; sg 08:25 Follow up: Response: No adverse reaction sg 07:18 Drug: NS 0.9% with KCl 20 mEq/L 1000 ml Route: IV; Rate: calculated rate; Site: left sg forearm; 08:47 Follow up: Response: No adverse reaction; IV Status: Completed infusion sg 08:06 Drug: Zofran 4 mg Route: IVP; Site: left antecubital; sg 08:24 Follow up: Response: No adverse reaction; Nausea is decreased sg Outcome: 08:33 Discharge ordered by . kb 08:44 Discharged to home ambulatory, with family. sg 08:44 Condition: good 08:44 Discharge instructions given to patient, family, cmo, Instructed on discharge instructions, follow up and referral plans. safety practices, Demonstrated understanding of instructions, follow-up care. 08:45 Patient left the ED. ag Signatures: Dispatcher [employer] Neeta Sosa, ANABEL STONEP-Maricel Martinez RN RN sv Gay, Steven, RN RN sg Sanford, Demi ds1 Katheryn Cooper Alex, RN RN ao Botello, Elizabeth eb
--- NOTE | 2017-08-11 08:34 | EDPHYS ---
Physician Documentation [facility] Name: Shameka Serrano Age: 87 yrs Sex: Female : 1930 Arrival Date: 08/11/2017 Time: 05:54 Bed 6 Private MD: ED Physician Kari Novak HPI: 08/11 06:06 This 87 yrs old Female presents to ER via Unassigned with complaints of kb Weakness, Urinary Frequency. 06:06 The patient presents with urinary symptoms, frequency. Onset: The symptoms/episode kb began/occurred 2 day(s) ago. Modifying factors: The symptoms are alleviated by nothing, the symptoms are aggravated by nothing. Associated signs and symptoms: Pertinent positives: urinary frequency, unsteady. Severity of symptoms: At their worst the symptoms were mild, moderate, in the emergency department the symptoms are unchanged. The patient has experienced similar episodes in the past, a few times. The patient has not recently seen a physician. Daughter states pt has been unsteady, altered and having urinary frequency since Saturday. Urinary frequency worse last night. Historical: - Allergies: 06:19 No Known Allergies; ao - Home Meds: 06:19 levothyroxine 75 mcg tab 1 tab once daily [Active]; lisinopril 10 mg Oral tab 1 tab ao once daily [Active]; pravastatin 40 mg Oral tab 1 tab nightly [Active]; clonazepam 0.5 mg Oral tab 1 tab 3 times per day [Active]; docusate sodium 100 mg Oral cap 1 cap once daily [Active]; paroxetine HCl 20 mg Oral tab [Active]; - PMHx: 06:19 Anxiety; COPD; Depression; Diverticulitis; ao - PSHx: 06:19 None; ao - Immunization history:: Adult Immunizations up to date. - Social history:: Smoking status: Patient uses tobacco products, smokes one-half pack cigarettes per day, Patient/guardian denies using alcohol, street drugs. ROS: 06:09 Constitutional: Negative for fever, chills, and weight loss, ENT: Negative for injury, kb pain, and discharge, Neck: Negative for injury, pain, and swelling, Cardiovascular: Negative for chest pain, palpitations, and edema, Respiratory: Negative for shortness of breath, cough, wheezing, and pleuritic chest pain, Abdomen/GI: Negative for abdominal pain, nausea, vomiting, diarrhea, and constipation, Back: Negative for injury and pain, MS/Extremity: Negative for injury and deformity, Skin: Negative for injury, rash, and discoloration. 06: : Positive for urinary symptoms, urinary frequency. 06: Neuro: Positive for gait disturbance, weakness. Exam: :09 Constitutional: This is a well developed, well nourished patient who is awake, alert, kb and in no acute distress. Head/Face: Normocephalic, atraumatic. ENT: Nares patent. No nasal discharge, no septal abnormalities noted. Tympanic membranes are normal and external auditory canals are clear. Oropharynx with no redness, swelling, or masses, exudates, or evidence of obstruction, uvula midline. Mucous membranes moist. Neck: Trachea midline, no thyromegaly or masses palpated, and no cervical lymphadenopathy. Supple, full range of motion without nuchal rigidity, or vertebral point tenderness. No Meningismus. Chest/axilla: Normal chest wall appearance and motion. Nontender with no deformity. No lesions are appreciated. Cardiovascular: Regular rate and rhythm with a normal S1 and S2. No gallops, murmurs, or rubs. Normal PMI, no JVD. No pulse deficits. Respiratory: Lungs have equal breath sounds bilaterally, clear to auscultation and percussion. No rales, rhonchi or wheezes noted. No increased work of breathing, no retractions or nasal flaring. Abdomen/GI: Soft, non-tender, with normal bowel sounds. No distension or tympany. No guarding or rebound. No evidence of tenderness throughout. Back: No spinal tenderness. No costovertebral tenderness. Full range of motion. Skin: Warm, dry with normal turgor. Normal color with no rashes, no lesions, and no evidence of cellulitis. MS/ Extremity: Pulses equal, no cyanosis. Neurovascular intact. Full, normal range of motion. Neuro: Awake and alert, GCS 15, oriented to person, place, time, and situation. Cranial nerves II-XII grossly intact. Motor strength 5/5 in all extremities. Sensory grossly intact. Cerebellar exam normal. Normal gait. Vital Signs: :15 BP 191 / 71; Pulse 73; Resp 14; Temp 97.9; Pulse Ox 91% on R/A; Weight 63.5 kg (R); ao Height 5 ft. 0 in. (152.40 cm) (R); Pain 0/10; 07:20 BP 192 / 70; Pulse 67 MON; Resp 16 S; Pulse Ox 98% on 2 lpm NC; sg 07:53 BP 159 / 79; Pulse 65; Resp 17; Pulse Ox 96% on R/A; sg 06:15 Body Mass Index 27.34 (63.50 kg, 152.40 cm) ao 07:53 pt daughter reports that the pt had taken her home medications for BP sg MDM: 05:59 Patient medically screened. kb 06:06 Data reviewed: vital signs, nurses notes. kb 06:09 ED course: Pt ambulated from lobby to restroom to room without difficulty. Steady gait kb observed. 06:27 Data interpreted: Pulse oximetry: on room air is 91 %. Interpretation: Borderline, pt kb has COPD. 08:33 Counseling: I had a detailed discussion with the patient and/or guardian regarding: the kb historical points, exam findings, and any diagnostic results supporting the discharge/admit diagnosis, lab results, radiology results, the need for outpatient follow up, a family practitioner, to return to the emergency department if symptoms worsen or persist or if there are any questions or concerns that arise at home. 08/11 05:59 Order name: Urine Microscopic Only; Complete Time: 06:45 kb 08/11 06:05 Order name: CBC with Diff; Complete Time: 06:45 kb 08/11 06:05 Order name: Basic Metabolic Panel; Complete Time: 07:03 kb 08/11 06:08 Order name: Urine Dipstick--Ancillary (enter results); Complete Time: 06:27 mw2 08/11 06:09 Order name: BNP; Complete Time: 07:03 kb 08/11 06:09 Order name: Magnesium; Complete Time: 07:03 kb 08/11 06:09 Order name: PT-INR; Complete Time: 07:03 kb 08/11 06:09 Order name: Ptt, Activated; Complete Time: 07:03 kb 08/11 06:09 Order name: Troponin (emerg Dept Use Only); Complete Time: 07:03 kb 08/11 06:15 Order name: CT Head Brain wo Cont kb 08/11 05:59 Order name: Urine Dipstick-Ancillary (obtain specimen); Complete Time: 06:07 kb 08/11 06:05 Order name: IV Start; Complete Time: 06:30 kb 08/11 06:09 Order name: EKG; Complete Time: 06:09 kb 08/11 06:09 Order name: Cardiac monitoring; Complete Time: 06:30 kb 08/11 06:09 Order name: EKG - Nurse/Tech; Complete Time: 06:39 kb 08/11 06:09 Order name: Labs collected and sent; Complete Time: 06:31 kb 08/11 06:09 Order name: O2 Per Protocol; Complete Time: 06:30 kb 08/11 06:09 Order name: O2 Sat Monitoring; Complete Time: 06:30 kb Administered Medications: 07:18 Drug: Potassium Effervescent Tablet 50 mEq Route: PO; sg 08:25 Follow up: Response: No adverse reaction sg 07:18 Drug: NS 0.9% with KCl 20 mEq/L 1000 ml Route: IV; Rate: calculated rate; Site: left sg forearm; 08:47 Follow up: Response: No adverse reaction; IV Status: Completed infusion sg 08:06 Drug: Zofran 4 mg Route: IVP; Site: left antecubital; sg 08:24 Follow up: Response: No adverse reaction; Nausea is decreased sg Disposition: 08/11/17 08:33 Discharged to Home. Impression: Hypokalemia, Weakness. - Condition is Stable. - Discharge Instructions: Potassium Content of Foods, Weakness, [id number], Hypokalemia. - Medication Reconciliation Form, Thank You Letter, Antibiotic Education, Prescription Opioid Use form. - Follow up: Emergency Department; When: As needed; Reason: Worsening of condition. Follow up: Private Physician; When: 2 - 3 days; Reason: Recheck today's complaints, Continuance of care, Re-evaluation by your physician. Addendum: 08/25/2017 10:01 Co-signature as Attending Physician, Kari Novak MD. m a2 Signatures: Dispatcher [employer] Neeta Sosa, DAY-C DAY-Adalid Major RN RN Katheryn Franklin Alex RN Kari Randall MD MD ma2 Corrections: (The following items were deleted from the chart) 08/11 06:25 06:09 Chest Single View+RAD.RAD.BRZ ordered. EDMS EDMS 06:28 06:27 Data interpreted: Pulse oximetry: on room air is 91 %. Interpretation: kb borderline. kb 08:45 08:33 08/11/2017 08:33 Discharged to Home. Impression: Hypokalemia; Weakness. Condition ag is Stable. Forms are Medication Reconciliation Form, Thank You Letter, Antibiotic Education, Prescription Opioid Use. Follow up: Emergency Department; When: As needed; Reason: Worsening of condition. Follow up: Private Physician; When: 2 - 3 days; Reason: Recheck today's complaints, Continuance of care, Re-evaluation by your physician. kb
[2017-08-11 08:51] VITALS: TEMP 97.9
[2017-08-11 08:53] VITALS: BP 159/79; O2SAT 96
--- NOTE | 2017-08-11 11:07 | RAD REPORT ---
EXAM DESCRIPTION: CT - Head Brain Wo Cont - 08/11/2017 6:53 am CLINICAL HISTORY: Altered consciousness COMPARISON: 05/21/2017 TECHNIQUE: All CT scans are performed using dose optimization technique as appropriate and may inclu de automated exposure control or mA/KV adjustment according to patient size. FINDINGS: No intracranial hemorrhage, hydrocephalus or extra-axial fluid collection.Moderate general ized brain atrophy is present with moderate periventricular and deep white matter chronic microvascul ar ischemic changes.No areas of brain edema or evidence of midline shift. The paranasal sinuses and mastoids are clear. The calvarium is intact. Partially imaged left parotid gland lesion again seen, nonspecific. IMPRESSION: No acute intracranial abnormality.
--- NOTE | 2017-08-12 14:47 | EKG ---
Test Date: 2017-08-11 Test Time: 06:49:[address]: SILVERIO MEASUREMENT RESULTS: Intervals: Rate: 67 [place]: 134 QRSD: 98 QT: 444 QTc: 469 [place]: P: [place]: 134 QRS: -47 T: 66 INTERPRETIVE STATEMENTS: Sinus rhythm with occasional premature ventricular complexes Left anterior fascicular block Abnormal ECG Compared to ECG 08/11/2017 06:49:23 Ventricular premature complex(es) now present Electronically Signed On 08-12-17 14:46:55 CDT by Edward Lugo
--- NOTE | 2017-08-12 14:47 | EKG ---
Test Date: 2017-08-11 Test Time: 06:49:23 Coping Machine Operator: SILVERIO MEASUREMENT RESULTS: Intervals: Rate: 67 ME: 136 QRSD: 96 QT: 442 QTc: 467 [place]: P: 269 ME: 136 QRS: -47 T: 62 INTERPRETIVE STATEMENTS: Unusual P axis and short ME, probable junctional rhythm Left anterior fascicular block Abnormal ECG Compared to ECG 07/02/2017 22:00:49 Left anterior fascicular block now present Sinus rhythm no longer present Ventricular premature complex(es) no longer present Left-axis deviation no longer present Myocardial infarct finding no longer present Electronically Signed On 08-12-17 14:47:26 CDT by Edward Lugo
== END 2017-08-11 08:45 | disposition home or self-care (01) ==
LOC: ER 05:52
DX: E87.6 Hypokalemia (principal); F17.210 Nicotine dependence, cigarettes, uncomplicated; F41.9 Anxiety disorder, unspecified; F32.9 Major depressive disorder, single episode, unspecified; J44.9 Chronic obstructive pulmonary disease, unspecified
CPT/HCPCS: 36415; 70450; 80048; 83735; 83880; 84484; 85025; 85610; 85730; 93005 ×2; 96361; 96374; 99284; J2405; 81003; 81015

== ENCOUNTER 2017-08-31 08:19 | Emergency (ER) | payer OTHER ==
[2017-08-31 09:19] LABS: Absolute Lymphocytes (CBC) 1.2 K/uL (0.7-4.9); Absolute Monocytes 0.4 K/uL (0.1-1.3); Absolute Neutrophil 7.9 K/uL (1.8-8.0); Basophils % 0.7 % (0-1.3); Eosinophils % 0.8 % (0-4.4); Hematocrit 45.5 % (36.0-45.0); MCH 30.8 pg (27.0-35.0); MCV 92.5 fL (80-100); Monocytes % 4.3 % (3.3-12.3); RBC Red Blood Cell Count 4.92 M/uL (3.86-4.86)
[2017-08-31 09:23] LABS: Protime INR 0.94
[2017-08-31 09:30] LABS: Potassium 3.1 mEq/L (3.6-5.0)
[2017-08-31 09:36] LABS: Albumin 3.6 g/dL (3.2-5.5); Bilirubin Direct 0.1 mg/dL (0-0.2); Bilirubin Total 0.7 mg/dL (0.3-1.2); Magnesium 2.1 mg/dL (1.8-2.5); Protein, Total 6.5 g/dL (6.0-8.3)
[2017-08-31 09:40] LABS: CKMB Creatine Kinase MB 1.8 ng/ml (0.3-4.0)
--- NOTE | 2017-08-31 09:43 | RAD REPORT ---
EXAM DESCRIPTION: CT - Head Brain Wo Cont - 08/31/2017 9:13 am CLINICAL HISTORY: Headache, dizziness COMPARISON: August 11 TECHNIQUE: Axial 5 mm thick images of the head were obtained without IV contrast. All CT scans are performed using dose optimization technique as appropriate and may include automated exposure control or mA/KV adjustment according to patient size. FINDINGS: No intracranial hemorrhage, mass, edema or shift of mid-line structures. No acute cortical based infarction. Mild to moderate atrophy changes are present. Ventricular size is in proportion to volume loss. Physiologic and arterial calcifications are present. No abnormal extra-axial fluid shivam ections. Intracranial findings are similar to comparison. Mastoid air cells and visualized portions of the paranasal sinuses are clear. No acute bony findings. A 3.8 centimeter soft tissue mass is present in the region of the left parotid gland. This is only pa rtially imaged on this study. It is unknown if this is a known finding or has been further evaluated. No prior directed imaging of this mass is evident. IMPRESSION: A 3.8 centimeter left parotid region soft tissue mass is present not fully addressed on this examination. Neoplastic mass is certainly possible. It is unknown if this mass is known or has b een previously worked up. No directed imaging of this mass at this facility. Mild to moderate atrophy and moderate chronic ischemic changes are present. Intracranial findings are similar to August 11.
[2017-08-31] MEDS ORDERED: NA CHLORIDE 0.9% 500 ML ONE (09:50)
[2017-08-31] MEDS ORDERED: KCL 20 MEQ/100 mL IVPB 20 MEQ/100 ML BAG IV ONE (09:50)
[2017-08-31] MEDS ORDERED: ONDANSETRON 4 MG/2 ML VIAL ONE (09:54)
[2017-08-31] MEDS ORDERED: MECLIZINE HCL 12.5 MG TAB ONE (09:54)
[2017-08-31 09:57] LABS: Urine Blood NEGATIVE (NEG); Urine Glucose NEGATIVE (NEG); Urine Protein NEGATIVE (NEG); Urine pH 7.5 (5.0-7.0)
--- NOTE | 2017-08-31 10:38 | RAD REPORT ---
EXAM DESCRIPTION: RAD - Chest Single View - 08/31/2017 9:25 am CLINICAL HISTORY: Weakness, dizziness, syncope COMPARISON: July 02 TECHNIQUE: AP portable chest image was obtained 0913 hours . FINDINGS: Chronic interstitial lung disease is present, similar to comparison. No peripheral mass or consolidation. Heart size and vasculature within normal limits. Trachea is midline. No measurable pl eural effusion and no pneumothorax. No gross bony abnormality seen. No acute aortic findings suspecte d. IMPRESSION: No acute cardiopulmonary process. Chronic interstitial lung disease pattern is similar to comparison.
--- NOTE | 2017-08-31 12:14 | ER ---
Nurse's Notes [facility] Name: Shameka Serrano Age: 87 yrs Sex: Female : 1930 Arrival Date: 08/31/2017 Time: 08:20 Bed 14 Private MD: Patrick Fragoso E Diagnosis: Dizziness and giddiness;Volume depletion;Hypokalemia Presentation: 08/31 08:21 Presenting complaint: Patient states: Woke up about 2:00 this morning to go to the [facility] bathroom and had a headache and felt dizzy. Transition of care: patient was not received from another setting of care. Onset of symptoms was August 31, 2017 at 02:00. Risk Assessment: Do you want to hurt yourself or someone else? Patient reports no desire to harm self or others. Initial Sepsis Screen: Does the patient meet any 2 criteria? No. Patient's initial sepsis screen is negative. Does the patient have a suspected source of infection? No. Patient's initial sepsis screen is negative. 08:21 Method Of Arrival: Wheelchair [facility] 08:21 Acuity: YUDITH 3 [facility] 08:21 Care prior to arrival: None. [facility] Triage Assessment: 08:21 Headache History: Denies prior headaches. General: Appears in no apparent distress. rb1 comfortable, Behavior is calm, cooperative, appropriate for age, Denies fever. Pain: Complains of pain in left side of head and under left breast Pain currently is 7 out of 10 on a pain scale. Pain began 0200 this morning. Pain: Also complains of nausea. Neuro: Level of Consciousness is awake, alert, obeys commands, Oriented to person, place, time, situation. Neuro: Reports dizziness. Cardiovascular: Capillary refill < 3 seconds is brisk in bilateral fingers. Respiratory: Airway is patent Respiratory effort is even, unlabored, Respiratory pattern is regular, symmetrical. GI: Reports nausea. : No signs and/or symptoms were reported regarding the genitourinary system. Derm: Skin is pink, warm \T\ dry. Musculoskeletal: Range of motion: intact in all extremities. Historical: - Allergies: 08: No Known Allergies; rb1 - Home Meds: 08: levothyroxine 75 mcg tab 1 tab once daily [Active]; pravastatin 40 mg Oral tab 1 tab rb1 nightly [Active]; lisinopril 10 mg Oral tab 1 tab once daily [Active]; paroxetine HCl 20 mg Oral tab [Active]; sucralfate 1 gram Oral tab 1 tab 3 times per day [Active]; - PMHx: 08:21 Anxiety; COPD; Depression; Diverticulitis; rb1 - PSHx: 08:21 ; Appendectomy; Thyroidectomy; Bowel resection; rb1 - Immunization history:: Adult Immunizations up to date. - Social history:: Smoking status: Patient uses tobacco products, smokes one-half pack cigarettes per day. - Ebola Screening: : Patient negative for fever greater than or equal to 101.5 degrees Fahrenheit, and additional compatible Ebola Virus Disease symptoms. Screenin:21 Abuse screen: Denies threats or abuse. Nutritional screening: No deficits noted. rb1 Tuberculosis screening: No symptoms or risk factors identified. Fall Risk None identified. Assessment: 08:21 General: See triage assessment. rb1 09:07 Reassessment: Pt. went to CT. rb1 09:30 Reassessment: Patient appears in no apparent distress at this time. No changes from rb1 previously documented assessment. 10:05 Reassessment: Patient appears in no apparent distress at this time. Patient and/or rb1 family updated on plan of care and expected duration. Pain level reassessed. Patient is alert, oriented x 3, equal unlabored respirations, skin warm/dry/pink. 11:31 Reassessment: Pt. ambulated to the bathroom and around the nurse's station without rb1 difficulty. Denies dizziness. Provider notified. Vital Signs: 08:21 BP 156 / 78; Pulse 71; Resp 20; Temp 98.1(O); Pulse Ox 93% on 2.5 lpm NC; Weight 58.97 rb1 kg; Height 5 ft. 1 in. (154.94 cm); Pain 7/10; 09:07 rb1 09:30 BP 180 / 81; Pulse 62; Resp 19; Pulse Ox 93% on 2.5 lpm NC; rb1 10:30 BP 168 / 67; Pulse 63; Resp 20; Pulse Ox 96% on 2.5 lpm NC; rb1 11:34 BP 184 / 75; Pulse 61; Resp 19; Pulse Ox 96% on 2.5 lpm NC; rb1 12:31 BP 163 / 66; Pulse 62; Resp 19; Pulse Ox 95% on 2.5 lpm NC; rb1 08:21 Body Mass Index 24.56 (58.97 kg, 154.94 cm) rb1 09:[address] rb1 ED Course: 08:20 Patient arrived in ED. sb2 08:20 Patrick Fragoso MD is Private Physician. sb2 08:21 Arm band placed on right wrist. rb1 08:21 Patient has correct armband on for positive identification. Placed in gown. Bed in low rb1 position. Call light in reach. Side rails up X 1. court monitor on. Pulse ox on. NIBP on. Warm blanket given. 08:33 Kristin Caba FNP-C is PHCP. snw 08:33 Tolu Bedoya MD is Attending Physician. snw 08:34 Claudia Crenshaw, RIA is Primary Nurse. rb1 08:35 Triage completed. rb1 09:05 Inserted saline lock: 22 gauge in right forearm, using aseptic technique. Blood rb1 collected. 09:13 CT Head Brain wo Cont In Process Unspecified. EDMS 09:13 CT completed. Patient tolerated procedure well. Patient moved to radiology. bq 09:24 X-ray completed. Portable x-ray completed in exam room. Patient tolerated procedure kc2 well. 09:24 XRAY Chest (1 view) In Process Unspecified. EDMS 09:49 Urine collected: clean catch specimen, clear, EKG done, by ED staff, reviewed by Kristin mh5 Gertrudis LITTLE. 12:13 Patrick Fragoso MD is Referral Physician. snw 12:35 No provider procedures requiring assistance completed. IV discontinued, intact, rb1 bleeding controlled, No redness/swelling at site. Pressure dressing applied. Administered Medications: 09:50 Drug: Potassium Chloride 20 mEq Route: IV; Rate: calculated rate; Site: right forearm; rb1 11:43 Follow up: Response: No adverse reaction; IV Status: Completed infusion rb1 09:50 Drug: NS 0.9% 500 ml Volume: 500 ml; Route: IV; Rate: 1 bolus; Site: right forearm; rb1 11:43 Follow up: IV Status: Completed infusion rb1 10:02 Drug: Zofran 4 mg Route: IVP; Site: right forearm; rb1 10:15 Follow up: Response: No adverse reaction; Nausea is decreased rb1 10:03 Drug: Meclizine 25 mg Route: PO; rb1 10:30 Follow up: Response: No adverse reaction; Marked relief of symptoms rb1 Outcome: 12:14 Discharge ordered by . awqar 12:35 Discharged to home via wheelchair, with family. rb1 12:35 Condition: stable 12:35 Discharge instructions given to patient, Instructed on discharge instructions, follow up and referral plans. medication usage, Demonstrated understanding of instructions, follow-up care, medications, Prescriptions given X 1. 12:36 Patient left the ED. rb1 Signatures: Dispatcher [employer] EDMS Kristin Caba, CRIME DATA SPECIALIST-C CRIME DATA SPECIALIST-CsnSalome Cee Rebecca RN RN rb1 Briseyda Harper2 Jill Nicole 5 Candis Quiñonez sb2 Corrections: (The following items were deleted from the chart) 11:36 11:34 BP 184 / 75; Pulse 61bpm; Resp 19bpm; Pulse Ox 96% RA; rb1 rb1
--- NOTE | 2017-08-31 12:15 | EDPHYS ---
Physician Documentation [facility] Name: Shameka Serrano Age: 87 yrs Sex: Female : 1930 Arrival Date: 08/31/2017 Time: 08:20 Bed 14 Private MD: Patrick Fragoso E ED Physician Tolu Bedoya HPI: 08/31 09:09 This 87 yrs old Female presents to ER via Wheelchair with complaints of High snw Blood Pressure, Headache, Dizziness. 09:09 The patient has elevated blood pressure and discovered this at home, with a home snw device. Onset: The symptoms/episode began/occurred at an unknown time. Modifying factors:. Associated signs and symptoms: Pertinent positives: dizziness. Severity of symptoms: At its worst the blood pressure was mild, moderate. The patient has experienced a previous episode. It is unknown whether or not the patient has recently seen a physician. sees Dr. Fragoso. Historical: - Allergies: 08:21 No Known Allergies; rb1 - Home Meds: 08:21 levothyroxine 75 mcg tab 1 tab once daily [Active]; pravastatin 40 mg Oral tab 1 tab rb1 nightly [Active]; lisinopril 10 mg Oral tab 1 tab once daily [Active]; paroxetine HCl 20 mg Oral tab [Active]; sucralfate 1 gram Oral tab 1 tab 3 times per day [Active]; - PMHx: 08:21 Anxiety; COPD; Depression; Diverticulitis; rb1 - PSHx: 08:21 ; Appendectomy; Thyroidectomy; Bowel resection; rb1 - Immunization history:: Adult Immunizations up to date. - Social history:: Smoking status: Patient uses tobacco products, smokes one-half pack cigarettes per day. - Ebola Screening: : Patient negative for fever greater than or equal to 101.5 degrees Fahrenheit, and additional compatible Ebola Virus Disease symptoms. ROS: 09:07 Constitutional: Negative for fever, chills, and weight loss, Eyes: Negative for injury, snw pain, redness, and discharge, ENT: Negative for injury, pain, and discharge, Neck: Negative for injury, pain, and swelling, Cardiovascular: Negative for chest pain, palpitations, and edema, Respiratory: Negative for shortness of breath, cough, wheezing, and pleuritic chest pain, Back: Negative for injury and pain, : Negative for injury, bleeding, discharge, and swelling, MS/Extremity: Negative for injury and deformity, Skin: Negative for injury, rash, and discoloration. 09:07 Abdomen/GI: Positive for nausea. 09:07 Neuro: Positive for dizziness. Exam: :07 Constitutional: This is a well developed, well nourished patient who is awake, alert, snw and in no acute distress. Head/Face: Normocephalic, atraumatic. Eyes: Pupils equal round and reactive to light, extra-ocular motions intact. Lids and lashes normal. Conjunctiva and sclera are non-icteric and not injected. Cornea within normal limits. Periorbital areas with no swelling, redness, or edema. ENT: Nares patent. No nasal discharge, no septal abnormalities noted. Tympanic membranes are normal and external auditory canals are clear. Oropharynx with no redness, swelling, or masses, exudates, or evidence of obstruction, uvula midline. Mucous membranes moist. Neck: Trachea midline, no thyromegaly or masses palpated, and no cervical lymphadenopathy. Supple, full range of motion without nuchal rigidity, or vertebral point tenderness. No Meningismus. Chest/axilla: Normal chest wall appearance and motion. Nontender with no deformity. No lesions are appreciated. Cardiovascular: Regular rate and rhythm with a normal S1 and S2. No gallops, murmurs, or rubs. Normal PMI, no JVD. No pulse deficits. Respiratory: Lungs have equal breath sounds bilaterally, clear to auscultation and percussion. No rales, rhonchi or wheezes noted. No increased work of breathing, no retractions or nasal flaring. Abdomen/GI: Soft, non-tender, with normal bowel sounds. No distension or tympany. No guarding or rebound. No evidence of tenderness throughout. Back: No spinal tenderness. No costovertebral tenderness. Full range of motion. Skin: Warm, dry with normal turgor. Normal color with no rashes, no lesions, and no evidence of cellulitis. MS/ Extremity: Pulses equal, no cyanosis. Neurovascular intact. Full, normal range of motion. Neuro: Awake and alert, GCS 15, oriented to person, place, time, and situation. Cranial nerves II-XII grossly intact. Motor strength 5/5 in all extremities. Sensory grossly intact. Cerebellar exam normal. Normal gait. Psych: Awake, alert, with orientation to person, place and time. Behavior, mood, and affect are within normal limits. Vital Signs: 08:21 BP 156 / 78; Pulse 71; Resp 20; Temp 98.1(O); Pulse Ox 93% on 2.5 lpm NC; Weight 58.97 rb1 kg; Height 5 ft. 1 in. (154.94 cm); Pain 7/10; 09:07 rb1 09:30 BP 180 / 81; Pulse 62; Resp 19; Pulse Ox 93% on 2.5 lpm NC; rb1 10:30 BP 168 / 67; Pulse 63; Resp 20; Pulse Ox 96% on 2.5 lpm NC; rb1 11:34 BP 184 / 75; Pulse 61; Resp 19; Pulse Ox 96% on 2.5 lpm NC; rb1 12:31 BP 163 / 66; Pulse 62; Resp 19; Pulse Ox 95% on 2.5 lpm NC; rb1 08:21 Body Mass Index 24.56 (58.97 kg, 154.94 cm) rb1 09:[address] rb1 MDM: 08:33 Patient medically screened. snw 12:19 Data reviewed: vital signs, nurses notes. Data interpreted: Pulse oximetry: on room air snw is 96 %. Interpretation: acceptable. Counseling: I had a detailed discussion with the patient and/or guardian regarding: the historical points, exam findings, and any diagnostic results supporting the discharge/admit diagnosis, the presence of at least one elevated blood pressure reading (>120/80) during this emergency department visit, lab results, radiology results, the need for outpatient follow up, to return to the emergency department if symptoms worsen or persist or if there are any questions or concerns that arise at home. Special discussion: I have referred the patient to see his PCP for further evaluation of high blood pressure. I discussed with the patient the need to follow-up with the PCP/specialist for the noted incidental finding on X-ray/CT scanning. Based on the history and exam findings, there is no indication for further emergent testing or inpatient evaluation. I discussed with the patient/guardian the need to see the primary care provider for further evaluation of the symptoms. parotid mass, basically unchanged since 2014. 08/31 08:52 Order name: Basic Metabolic Panel; Complete Time: 09:41 snw 08/31 08:52 Order name: BNP; Complete Time: 09:41 snw 08/31 08:52 Order name: CBC with Diff; Complete Time: 12:29 snw 08/31 08:52 Order name: Ckmb; Complete Time: 09:41 snw 08/31 08:52 Order name: CPK; Complete Time: 09:41 snw 08/31 08:52 Order name: LFT's; Complete Time: 09:41 snw 08/31 08:52 Order name: Magnesium; Complete Time: 09:41 snw 08/31 08:52 Order name: PT-INR; Complete Time: 09:34 snw 08/31 08:52 Order name: Ptt, Activated; Complete Time: 09:34 snw 08/31 08:52 Order name: Troponin (emerg Dept Use Only); Complete Time: 09:41 snw 08/31 08:52 Order name: XRAY Chest (1 view); Complete Time: 10:39 snw 08/31 09:33 Order name: CBC Smear Scan; Complete Time: 12:29 EDMS 08/31 09:51 Order name: Urine Dipstick--Ancillary (enter results) em1 08/31 09:52 Order name: Urine Dipstick-Ancillary; Complete Time: 10:07 EDMS 08/31 08:52 Order name: EKG; Complete Time: 08:53 snw 08/31 08:52 Order name: Cardiac monitoring; Complete Time: 08:56 snw 08/31 08:52 Order name: EKG - Nurse/Tech; Complete Time: 09:50 snw 08/31 08:52 Order name: IV Saline Lock; Complete Time: 09:11 snw 08/31 08:52 Order name: Labs collected and sent; Complete Time: 09:11 snw 08/31 08:52 Order name: O2 Per Protocol; Complete Time: 08:56 snw 08/31 08:52 Order name: O2 Sat Monitoring; Complete Time: 08:56 snw 08/31 08:52 Order name: Urine Dipstick-Ancillary (obtain specimen); Complete Time: 09:49 snw 08/31 08:52 Order name: CT Head Brain wo Cont; Complete Time: 09:51 snw 08/31 10:30 Order name: Misc. Order: Please assist pt with ambulation/have pt push w/c; Complete snw Time: 11:30 Administered Medications: 09:50 Drug: Potassium Chloride 20 mEq Route: IV; Rate: calculated rate; Site: right forearm; rb1 11:43 Follow up: Response: No adverse reaction; IV Status: Completed infusion rb1 09:50 Drug: NS 0.9% 500 ml Volume: 500 ml; Route: IV; Rate: 1 bolus; Site: right forearm; rb1 11:43 Follow up: IV Status: Completed infusion rb1 10: Drug: Zofran 4 mg Route: IVP; Site: right forearm; rb1 10:15 Follow up: Response: No adverse reaction; Nausea is decreased rb1 10: Drug: Meclizine 25 mg Route: PO; rb1 10:30 Follow up: Response: No adverse reaction; Marked relief of symptoms rb1 Disposition: 09/01 07:18 Co-signature as Attending Physician, Tolu Bedoya MD. Disposition: 08/31/17 12:14 Discharged to Home. Impression: Dizziness and giddiness, Volume depletion, Hypokalemia. - Condition is Stable. - Discharge Instructions: Dizziness, Hypertension, Hypokalemia, Rehydration, Elderly. - Prescriptions for Meclizine 25 mg Oral Tablet - take 1 tablet by ORAL route every 8 hours As needed; 30 tablet. - Medication Reconciliation Form, Thank You Letter, Antibiotic Education, Prescription Opioid Use form. - Follow up: Patrick Fragoso MD; When: 2 - 3 days; Reason: Recheck today's complaints, Continuance of care, Re-evaluation by your physician. Follow up: Emergency Department; When: As needed; Reason: Worsening of condition. Signatures: Dispatcher [employer] EDME Kristin Caba, DAY-C CIGAR WRAPPER-Csnw Claudia Crenshaw, RN RN Tolu Morataya MD MD gs Corrections: (The following items were deleted from the chart) 08/31 12:36 12:14 08/31/2017 12:14 Discharged to Home. Impression: Dizziness and giddiness; Volume rb1 depletion; Hypokalemia. Condition is Stable. Discharge Instructions: Dizziness, Hypertension, Hypokalemia, Rehydration, Elderly. Prescriptions for Meclizine 25 mg Oral Tablet - take 1 tablet by ORAL route every 8 hours As needed; 30 tablet. and Forms are Medication Reconciliation Form, Thank You Letter, Antibiotic Education, Prescription Opioid Use. Follow up: Patrick Fragoso; When: 2 - 3 days; Reason: Recheck today's complaints, Continuance of care, Re-evaluation by your physician. Follow up: Emergency Department; When: As needed; Reason: Worsening of condition. snw
--- NOTE | 2017-08-31 12:21 | EKG ---
Test Date: 2017-08-31 Test Time: 09:39:05 Leak Patcher: WARD MEASUREMENT RESULTS: Intervals: Rate: 59 RI: 136 QRSD: 90 QT: 412 QTc: 407 [place]: P: RI: 136 QRS: -31 T: 70 INTERPRETIVE STATEMENTS: Sinus bradycardia Left axis deviation Abnormal ECG Compared to ECG 08/11/2017 06:49:51 Left-axis deviation now present Sinus rhythm no longer present Ventricular premature complex(es) no longer present Left anterior fascicular block no longer present Electronically Signed On 08-31-17 12:20:04 CDT by Edward Lugo
[2017-08-31 12:28] LABS: Blood Morphology Comment NOT SEEN (NOT SEEN); Platelet Estimate ADEQ; Urine White Blood Cell Casts OK
[2017-08-31 12:39] VITALS: TEMP 98.1
[2017-08-31 12:44] VITALS: BP 163/66; O2SAT 95
== END 2017-08-31 12:36 | disposition home or self-care (01) ==
LOC: ER 08:19
DX: E86.9 Volume depletion, unspecified (principal); E87.6 Hypokalemia; J44.9 Chronic obstructive pulmonary disease, unspecified; F32.9 Major depressive disorder, single episode, unspecified; F17.210 Nicotine dependence, cigarettes, uncomplicated
CPT/HCPCS: 36415; 70450; 71045; 80048; 80076; 81003; 82550; 82553; 83735; 83880; 84484; 85025; 85610; 85730; 93005; 96365; 96366; 96375; 99285; J2405; 96361

== ENCOUNTER 2021-04-12 19:09 | Emergency (ER) | payer OTHER ==
--- OUTSIDE RECORDS SUMMARY | 2021-04-12 19:11 | XMS REPORT | Continuity of Care Document ---
:1930 Author Organization [facility] t Address [address] [place] [address] Dr. Mendoza [address] [place] [id number] Care Team Providers Name Role Phone Unavailable Unavailable Unavailable Problems This patient has no known problems. Allergies, Adverse Reactions, Alerts This patient has no known allergies or adverse reactions. Medications This patient has no known medications. Procedures This patient has no known procedures. Results This patient has no known results.
--- NOTE | 2021-04-12 21:11 | RAD REPORT ---
EXAM DESCRIPTION: CT - Head Brain Wo Cont - 04/12/2021 9:00 pm CLINICAL HISTORY: TRAUMA COMPARISON: Facial Bones W/ Mpr dated 04/12/2021; Head Brain Wo Cont dated 08/31/2017 TECHNIQUE: All CT scans are performed using dose optimization technique as appropriate and may inclu de automated exposure control or mA/KV adjustment according to patient size. FINDINGS: No intracranial hemorrhage, hydrocephalus or extra-axial fluid collection.No areas of brai n edema or evidence of midline shift. Cerebral atrophy. Chronic small vessel ischemic changes. Mucous retention cysts in the maxillary sinus. The calvarium is intact. Bilateral nasal bone fracture s . IMPRESSION: No acute intracranial abnormality. Bilateral nasal bone fractures.
--- NOTE | 2021-04-12 21:14 | RAD REPORT ---
EXAM DESCRIPTION: CT - CTFB CLINICAL HISTORY: TRAUMA COMPARISON: CT HEAD BRAIN WWO CONTRAST dated 09/12/2010 TECHNIQUE: Axial 2 mm thick images of the face were obtained with sagittal and coronal reconstructio n images. All CT scans are performed using dose optimization technique as appropriate and may include automated exposure control or mA/KV adjustment according to patient size. FINDINGS: The mandible is intact. The globes and orbital contents are grossly unremarkable.Bilateral nasal bone fractures. The right si de is displaced medially by approximately 1-2 millimeters. The left nasal bone fracture is nondisplac ed and minimally angulated. Partially imaged surgical changes in the left aspect of the neck. Dense carotid artery calcifications . IMPRESSION: Bilateral nasal bone fractures, mildly displaced on the right.
--- NOTE | 2021-04-12 21:54 | EDPHYS ---
Physician Documentation [facility] Name: Shameka Serrano Age: 89 yrs Sex: Female : 1930 Arrival Date: 04/12/2021 Time: 19:12 Bed 7 Private MD: ED Physician Jillian Bledsoe HPI: 04/12 21:19 This 89 yrs old Female presents to ER via Wheelchair with complaints of Fall Injury, sp3 Head Injury Without LOC-Adult. 21:19 10-year-old female with history of COPD, depression, who presents to the ED for chief sp3 complaint nose injury, facial injury, epistaxis now resolved, left hand injury secondary to a mechanical ground-level fall without syncope, chest pain, back pain, or any other medical prodrome symptoms. Patient states that she was cleaning her oven and was bent down and lost her balance when she reached forward and fell forward and hit her face on the open itself. Patient denies loss of consciousness, neck pain, chest pain, back pain, shortness of breath, abdominal pain, any joint pain except her left hand, nausea, vomiting, diarrhea, or any other symptoms on ROS at this time. Patient states that she had several episodes of epistaxis (could not tell which side) but that is now resolved. Patient not on any blood thinners or antiplatelet agents.. Historical: - Allergies: 19:35 No Known Allergies; tw5 - Home Meds: 19:37 loratadine 10 mg oral cap [Active]; lisinopril 20 mg Oral tab 1 tab once daily tw5 [Active]; Levoxyl 75 mcg Oral tab 1 tab once daily [Active]; paroxetine HCl 20 mg oral tab 1 tab once daily [Active]; oxybutynin chloride 5 mg Oral tr24 1 tab once daily [Active]; mirtazapine 30 mg Oral tab 1 tab once daily [Active]; pravastatin 40 mg oral tab 1 tab once daily [Active]; Albuterol Inhl [Active]; - PMHx: 19:35 Anxiety; COPD; Depression; Diverticulitis; tw5 - PSHx: 19:35 None; tw5 - Immunization history: Last tetanus immunization: - up to date. - Social history:: Smoking status: Patient reports the use of cigarette tobacco products, smokes one pack cigarettes per day. ROS: 21:21 Constitutional: Negative for fever, chills, and weight loss, Eyes: Negative for injury, sp3 pain, redness, and discharge, Neck: Negative for injury, pain, and swelling, Cardiovascular: Negative for chest pain, palpitations, and edema, Respiratory: Negative for shortness of breath, cough, wheezing, and pleuritic chest pain, Abdomen/GI: Negative for abdominal pain, nausea, vomiting, diarrhea, and constipation, Back: Negative for injury and pain, MS/Extremity: Negative for injury and deformity, Skin: Negative for injury, rash, and discoloration, Neuro: Negative for headache, weakness, numbness, tingling, and seizure, Psych: Negative for depression, anxiety, suicide ideation, homicidal ideation, and hallucinations, Allergy/Immunology: Negative for hives, rash, and allergies, Endocrine: Negative for neck swelling, polydipsia, polyuria, polyphagia, and marked weight changes. 21:21 All other systems are negative. Exam: 21:21 Constitutional: This is a well developed, well nourished patient who is awake, alert, sp3 and in no acute distress. Eyes: Pupils equal round and reactive to light, extra-ocular motions intact. Lids and lashes normal. Conjunctiva and sclera are non-icteric and not injected. Cornea within normal limits. Periorbital areas with no swelling, redness, or edema. Neck: Trachea midline, no thyromegaly or masses palpated, and no cervical lymphadenopathy. Supple, full range of motion without nuchal rigidity, or vertebral point tenderness. No Meningismus. Chest/axilla: Normal chest wall appearance and motion. Nontender with no deformity. No lesions are appreciated. Cardiovascular: Regular rate and rhythm with a normal S1 and S2. No gallops, murmurs, or rubs. Normal PMI, no JVD. No pulse deficits. Respiratory: Lungs have equal breath sounds bilaterally, clear to auscultation and percussion. No rales, rhonchi or wheezes noted. No increased work of breathing, no retractions or nasal flaring. Abdomen/GI: Soft, non-tender, with normal bowel sounds. No distension or tympany. No guarding or rebound. No evidence of tenderness throughout. Back: No spinal tenderness. No costovertebral tenderness. Full range of motion. Neuro: Awake and alert, GCS 15, oriented to person, place, time, and situation. Cranial nerves II-XII grossly intact. Motor strength 5/5 in all extremities. Sensory grossly intact. Cerebellar exam normal. Normal gait. Psych: Awake, alert, with orientation to person, place and time. Behavior, mood, and affect are within normal limits. 21:21 Head/face: Patient has multiple ecchymoses on her nasal bridge, bilateral back axillary facial areas and periorbital areas particularly on the left side. There is no scalp hematoma. Eye exam is normal including extraocular movements. There is no raccoon sign, pain over the mastoid processes, or changes in hearing. Tympanic membranes are normal bilaterally. Cranial nerves II through XII are intact. Cervical spine does not be Nexus criteria and there is no spinal pain whatsoever. Mental status, speech, motor and sensory, pain and temperature, proprioception are all within normal limits.. 21:21 Musculoskeletal/extremity: Patient has ecchymoses on the hypothenar region of the left thumb bilaterally with mild palmar extension of set ecchymoses. No bony tenderness per se and capillary refill is normal as well as neurovascular exam of the wrist and hand and proximal joints.. Vital Signs: 19:30 BP 172 / 79; Pulse 86; Resp 18; Temp 97.8; Pulse Ox 92% on R/A; Weight 68.04 kg; Height tw5 5 ft. 0 in. (152.40 cm); Pain 9/10; 21:16 BP 168 / 74; Pulse 70; Resp 18; Pulse Ox 93% ; st1 19:30 Body Mass Index 29.29 (68.04 kg, 152.40 cm) tw5 Fanny Coma Score: 19:30 Eye Response: spontaneous(4). Verbal Response: oriented(5). Motor Response: obeys tw5 commands(6). Total: 15. Trauma Score (Adult): 19:30 Eye Response: spontaneous(1); Verbal Response: oriented(1); Motor Response: obeys tw5 commands(2); Systolic BP: > 89 mm Hg(4); Respiratory Rate: 10 to 29 per min(4); Britt Score: 15; Trauma Score: 12 MDM: 20:53 Patient medically screened. sp3 21:23 Data reviewed: vital signs, nurses notes. ED course: Stable patient with normal vital sp3 signs. Will obtain CT scan of the head and facial bones. Further imaging is not indicated including x-ray of the hand or cervical spine. If work-up is negative will discharge patient home. Patient already took 2 Tylenol and is declining further medication as the Tylenol is already made her feel better. At this time I am not highly suspicious for intracranial hemorrhage, fracture, vascular traumatic injury or disruption, CVA, sepsis, ACS, or any other medical etiology for patient falling. If scans are negative will discharge patient home.. 21:52 ED course: He had his negative. Facial bones indicate bilateral nasal fractures sp3 consistent with mechanism of injury. No other abnormalities noted. We will discharge patient home with continued p.o. pain control with Tylenol as she is already doing. Follow-up with ENT as needed.. 04/12 19:37 Order name: CT Head Brain wo Cont; Complete Time: 21:52 tw5 04/12 20:53 Order name: CT Facial Bones W/O Con; Complete Time: 21:52 sp3 Administered Medications: No medications were administered Disposition Summary: 04/12/21 21:53 Discharge Ordered Location: Home sp3 Condition: Stable sp3 Diagnosis - Fracture of nasal bones sp3 Followup: sp3 - With: Private Physician - When: Upon discharge from the Emergency Department - Reason: Continuance of care Followup: sp3 - With: Maricel Dorado MD - When: Upon discharge from the Emergency Department - Reason: Further diagnostic work-up Discharge Instructions: - Discharge Summary Sheet sp3 - Nasal Fracture sp3 Forms: - Medication Reconciliation Form sp3 - Thank You Letter sp3 - Antibiotic Education sp3 - Prescription Opioid Use sp3 Signatures: Dispatcher [employer] EDJillian Cole MD MD sp3 Radha Jorgensen tw5
--- NOTE | 2021-04-12 21:54 | ER ---
Nurse's Notes [facility] Name: Shameka Serrano Age: 89 yrs Sex: Female : 1930 Arrival Date: 04/12/2021 Time: 19:12 Bed 7 Private MD: Diagnosis: Fracture of nasal bones Presentation: 04/12 19:31 Chief complaint: Patient's son or daughter states: " She fell around noon today but she tw5 didn't tell me until I got home. I got home around 6:30. I am afraid her nose may be broken, and she hit her hand. I guess she tried to catch herself.". Care prior to arrival: None. Mechanism of Injury: Fall "She was swatting cleaning the oven and she fell forward when she lost her balance". Trauma event details: Injury occurred in the [facility], Injury occurred: at home. Injury occurred: April 12, 2021 Injury occurred at: 12:00. 19:31 Acuity: YUDITH 4 tw5 19:31 Method Of Arrival: Wheelchair tw5 19:35 Coronavirus screen: Vaccine status: Patient reports receiving the 2nd dose of the covid tw5 vaccine. [employer]. Ebola Screen: Patient negative for fever greater than or equal to 101.5 degrees Fahrenheit, and additional compatible Ebola Virus Disease symptoms Patient denies exposure to infectious person. Patient denies travel to an Ebola-affected area in the 21 days before illness onset. Initial Sepsis Screen: Does the patient meet any 2 criteria? No. Patient's initial sepsis screen is negative. Does the patient have a suspected source of infection? No. Patient's initial sepsis screen is negative. Risk Assessment: Do you want to hurt yourself or someone else? Patient reports no desire to harm self or others. Onset of symptoms is unknown. Trauma Activation: Physician: ED Physician; Name: Dr. Bledsoe; Notified At: 20:51; Arrived At: 20:51 Physician: General Surgeon; Name: ; Notified At: 20:51; Arrived At: Physician: Radiology; Name: ; Notified At: 20:51; Arrived At: 20:51 Physician: Respiratory; Name: ; Notified At: 20:51; Arrived At: Physician: Lab; Name: ; Notified At: 20:51; Arrived At: Historical: - Allergies: 19:35 No Known Allergies; tw5 - Home Meds: 19:37 loratadine 10 mg oral cap [Active]; lisinopril 20 mg Oral tab 1 tab once daily tw5 [Active]; Levoxyl 75 mcg Oral tab 1 tab once daily [Active]; paroxetine HCl 20 mg oral tab 1 tab once daily [Active]; oxybutynin chloride 5 mg Oral tr24 1 tab once daily [Active]; mirtazapine 30 mg Oral tab 1 tab once daily [Active]; pravastatin 40 mg oral tab 1 tab once daily [Active]; Albuterol Inhl [Active]; - PMHx: 19:35 Anxiety; COPD; Depression; Diverticulitis; tw5 - PSHx: 19:35 None; tw5 - Immunization history: Last tetanus immunization: - up to date. - Social history:: Smoking status: Patient reports the use of cigarette tobacco products, smokes one pack cigarettes per day. Screenin:36 Abuse screen: Denies threats or abuse. Denies injuries from another. Nutritional tw5 screening: No deficits noted. Tuberculosis screening: No symptoms or risk factors identified. Fall Risk Fall in past 12 months (25 points). Primary Survey: 19:31 NO uncontrolled hemorrhage observed. A: The patient is alert. Airway: patent. tw5 Breathing/Chest: Respiratory pattern:. Circulation: Skin color: pink. Disability Alert. Exposure/Environment: There is no evidence of uncontrolled external bleeding. Reassessment Airway Airway Breathing/Chest Respiratory pattern Circulation Color [place] Disability Alert. Secondary Survey: 20:52 HEENT: Head Other bruising to the nose Nose: bleeding noted. Musculoskeletal: Swelling bp present in left hand Reports pain in left hand. Injury Description: Bruise sustained to left hand and nose. Assessment: 19:31 General: Appears in no apparent distress. Behavior is calm, cooperative, appropriate tw5 for age. Pain: Complains of pain in nose Pain currently is 9 out of 10 on a pain scale. Injury Description: Bruise sustained to medial aspect of left hand and nose. Vital Signs: 19:30 BP 172 / 79; Pulse 86; Resp 18; Temp 97.8; Pulse Ox 92% on R/A; Weight 68.04 kg; Height tw5 5 ft. 0 in. (152.40 cm); Pain 9/10; 21:16 BP 168 / 74; Pulse 70; Resp 18; Pulse Ox 93% ; st1 19:30 Body Mass Index 29.29 (68.04 kg, 152.40 cm) tw5 Fanny Coma Score: 19:30 Eye Response: spontaneous(4). Verbal Response: oriented(5). Motor Response: obeys tw5 commands(6). Total: 15. Trauma Score (Adult): 19:30 Eye Response: spontaneous(1); Verbal Response: oriented(1); Motor Response: obeys tw5 commands(2); Systolic BP: > 89 mm Hg(4); Respiratory Rate: 10 to 29 per min(4); [place] Score: 15; Trauma Score: 12 ED Course: 19:12 Patient arrived in ED. bp1 19:34 Triage completed. tw5 19:35 Arm band placed on right wrist. tw5 20:47 Zara Cevallos RN is Primary Nurse. sm5 20:50 Jillian Bledsoe MD is Attending Physician. sp3 21:00 CT Head Brain wo Cont In Process Unspecified. EDMS 21:00 CT Facial Bones W/O Con In Process Unspecified. EDMS 21:17 Patient maintains SpO2 saturation greater than 95% on room air. Thermoregulation: st1 patient does not want a warm blanket at this time. 21:18 Patient has correct armband on for positive identification. Fall risk band placed. Call st1 light in reach. patient is sitting in wheelchair, wheels are locked, daughter with the patient. Pulse ox on. NIBP on. Verbal reassurance given. 21:53 Maricel Dorado MD is Referral Physician. sp3 22:22 No provider procedures requiring assistance completed. Patient did not have IV access tw5 during this emergency room visit. Administered Medications: No medications were administered Intake: 19:30 PO: 0ml; Total: 0ml. tw5 Output: 19:30 Urine: 0ml; Total: 0ml. tw5 Outcome: 21:53 Discharge ordered by . sp3 22:22 Discharged to home via wheelchair, with family. tw5 22:22 Condition: stable 22:22 Discharge instructions given to patient, family, Instructed on discharge instructions, follow up and referral plans. Demonstrated understanding of instructions, follow-up care. 22:22 Patient left the ED. tw5 Signatures: Dispatcher [employer] Tim Ron, RN RN Belkis Miramontes Setul, MD MD sp3 Radha Jorgensen tw5 Zara Cevallos RN RN sm5 Urmila Roberts RN RN st1
[2021-04-12 23:06] VITALS: TEMP 97.8
[2021-04-12 23:08] VITALS: BP 168/74; O2SAT 93
== END 2021-04-12 22:22 | disposition home or self-care (01) ==
LOC: ER 19:09
DX: S02.2XXA Fracture of nasal bones, initial encounter for closed fracture (principal); W18.39XA Other fall on same level, initial encounter; F41.9 Anxiety disorder, unspecified; J44.9 Chronic obstructive pulmonary disease, unspecified; F17.210 Nicotine dependence, cigarettes, uncomplicated
CPT/HCPCS: 70450; 70486; 76377; 99284